=== PATIENT | male | born 1980 | race Caucasian/White ===

== ENCOUNTER 2018-11-18 20:32 | Emergency (ER) | payer OTHER ==
--- NOTE | 2018-11-18 20:50 | EDM.PDOCBH ---
<Garry Priest - Last Filed: 11/18/18 21:39> ED HPI GENERAL MEDICAL PROBLEM - General Chief Complaint: Behavioral/Psych Stated Complaint: SUICIDAL THOUGHTS Time Seen by Provider: 11/18/18 20:47 Source of Information: Reports: Patient History Limitations: Reports: No Limitations - History of Present Illness INITIAL COMMENTS - FREE TEXT/NARRATIVE: HISTORY AND PHYSICAL: History of present illness: Patient is a 38-year-old male here with history of PTSD here with complaint of suicidal thoughts. He states he abruptly stopped his zoloft 3 months ago. He states that since then he has progressively gotten worse. He reports he has been feeling anxious, paranoid, and suicidal. He reports he feels like his neighbors are out to get him. He states today he was thinking about killing himself by cutting his wrists in the bathtub. He called the [facility] in [place] and was told to come to the ED. He presented to the ED on his own with the desire to seek help. He does have history of alcohol and methamphetamine use. He reports he has been sober for the past 2 months. He was hospitalized for acute psychosis last year following methamphetamine use. Patient smokes 1 ppd and requesting nicotine patch. Review of systems: As per history of present illness and below otherwise all systems reviewed and negative. Past medical history: As per history of present illness and as reviewed below otherwise noncontributory. Surgical history: As per history of present illness and as reviewed below otherwise noncontributory. Social history: No reported history of drug or alcohol abuse. Family history: As per history of present illness and as reviewed below otherwise noncontributory. Physical exam: General: Patient sitting comfortably in no acute distress and nontoxic appearing HEENT: Atraumatic, normocephalic, pupils reactive, negative for conjunctival pallor or scleral icterus, mucous membranes moist, throat clear, neck supple, nontender, trachea midline. No meningeal signs. Lungs: Clear to auscultation, breath sounds equal bilaterally, chest nontender. Heart: S1S2, regular, negative for clicks, rubs, or overt murmur. Abdomen: Soft, nondistended, nontender. Negative for masses or hepatosplenomegaly. Negative for costovertebral tenderness. No rigidity, rebound , guarding. Pelvis: Stable nontender. Genitourinary: Deferred. Rectal: Deferred. Extremities: Atraumatic, negative for cords or calf pain. Neurovascular unremarkable. Neuro: Awake, alert, oriented. Cranial nerves II through XII unremarkable. Cerebellum unremarkable. Motor and sensory unremarkable throughout. Exam nonfocal. Notes: Dr. Ortez has accepted patient for transfer. He does mention that patient was requesting opioid medication at his last admission and was someone difficult at that time. He asks if I can mention this to the patient so that patient is aware he will not be receiving opioids. Patient at first does not recall this incident but then states that he was coming off of meth and he remembers that he was very unpleasant at that time. He reports he has no back pain whatsoever and does not want opioid medications. He has been very pleasant and cooperative on my evaluation. Hold was placed on patient. Diagnostics: 3C work up Therapeutics: Nicotine patch Prescriptions: None Impression: Suicidal ideation with a plan Plan: Dr. Ortez has accepted patient for transfer via ground ambulance Definitive disposition and diagnosis as appropriate pending reevaluation and review of above. - Related Data Allergies Allergy/AdvReac Type Severity Reaction Status Date / Time morphine Allergy Itching Verified 11/18/18 20:38 Home Meds: Home Meds . [No Known Home Meds] 11/18/18 [History] Past Medical History Psychiatric History: Reports: Bipolar, PTSD - Infectious Disease History Infectious Disease History: Reports: Chicken Pox Social & Family History - Caffeine Use Caffeine Use: Reports: Coffee, Energy Drinks, Soda, Tea ED ROS GENERAL - Review of Systems Review Of Systems: ROS reveals no pertinent complaints other than HPI. ED EXAM, BEHAVIORAL HEALTH - Physical Exam Exam: See Below (see dictation) COURSE, BEHAVIORAL HEALTH COMP - Course Vital Signs: Last Vital Signs Temp 36.4 C 11/18/18 20:38 Pulse 76 11/18/18 22:38 Resp 14 11/18/18 22:38 BP 140/72 11/18/18 22:38 Pulse Ox 94 L 11/18/18 22:38 Orders, Labs, Meds: Active Orders 24 hr Category Date Time Status EKG Documentation Completion [RC] STAT Care 11/18/18 20:47 Active Laboratory Tests 11/18/18 11/18/18 11/18/18 Range/Units 20:59 20:59 21:34 WBC 9.35 (4.0-11.0) K/uL RBC 4.74 (4.50-5.90) M/uL Hgb 14.3 (13.0-17.0) g/dL Hct 41.8 (38.0-50.0) % MCV 88.2 (80.0-98.0) fL MCH 30.2 (27.0-32.0) pg MCHC 34.2 (31.0-37.0) g/dL RDW Std Deviation 41.2 (28.0-62.0) fl RDW Coeff of Sonido 13 (11.0-15.0) % Plt Count 281 (150-400) K/uL MPV 9.80 (7.40-12.00) fL Neut % (Auto) 61.5 (48.0-80.0) % Lymph % (Auto) 24.8 (16.0-40.0) % [place] % (Auto) 10.7 (0.0-15.0) % Eos % (Auto) 2.5 (0.0-7.0) % Baso % (Auto) 0.5 (0.0-1.5) % Neut # (Auto) 5.8 H (1.4-5.7) K/uL Lymph # (Auto) 2.3 (0.6-2.4) K/uL [place] # (Auto) 1.0 H (0.0-0.8) K/uL Eos # (Auto) 0.2 (0.0-0.7) K/uL Baso # (Auto) 0.1 (0.0-0.1) K/uL Nucleated RBC % 0.0 /100WBC Nucleated RBCs # 0 K/uL Sodium 142 (136-148) mmol/L Potassium 4.1 (3.5-5.1) mmol/L Chloride 104 (98-107) mmol/L Carbon Dioxide 24.2 (21.0-32.0) mmol/L BUN 17 (7.0-18.0) mg/dL Creatinine 1.1 (0.8-1.3) mg/dL Est Cr Clr Drug Dosing 91.95 mL/min Estimated GFR (MDRD) > 60.0 ml/min Glucose 115 H (74-106) mg/dL Calcium 9.3 (8.5-10.1) mg/dL Magnesium 2.1 (1.8-2.4) mg/dL Total Bilirubin 0.3 (0.2-1.0) mg/dL AST 26 (15-37) IU/L ALT 50 (14-63) IU/L Alkaline Phosphatase 88 (46-116) U/L Total Protein 7.4 (6.4-8.2) g/dL Albumin 4.1 (3.4-5.0) g/dL Globulin 3.3 (2.6-4.0) g/dL Albumin/Globulin Ratio 1.2 (0.9-1.6) TSH 3rd Generation 1.18 (0.36-3.74) uIU/mL Urine Color YELLOW Urine Appearance CLEAR Urine pH 6.0 (5.0-8.0) Ur Specific [place] <= 1.005 (1.001-1.035) Urine Protein NEGATIVE (NEGATIVE) mg/dL Urine Glucose (UA) NEGATIVE (NEGATIVE) mg/dL Urine Ketones NEGATIVE (NEGATIVE) mg/dL Urine Occult Blood NEGATIVE (NEGATIVE) Urine Nitrite NEGATIVE (NEGATIVE) Urine Bilirubin NEGATIVE (NEGATIVE) Urine Urobilinogen 0.2 (<2.0) EU/dL Ur Leukocyte Esterase NEGATIVE (NEGATIVE) Urine RBC 0-1 (0-2/HPF) Urine WBC 0-1 (0-5/HPF) Ur Epithelial Cells RARE (NONE-FEW) Urine Bacteria RARE (NEGATIVE) Salicylates 2.1 (0-20) mg/dL Urine Opiates Screen (NEGATIVE) Ur Oxycodone Screen (NEGATIVE) Urine Methadone Screen (NEGATIVE) Acetaminophen < 2.0 ug/mL Ur Barbiturates Screen (NEGATIVE) Ur Phencyclidine Scrn (NEGATIVE) Ur Amphetamine Screen (NEGATIVE) U Methamphetamines Scrn (NEGATIVE) U Benzodiazepines Scrn (NEGATIVE) U Cocaine Metab Screen (NEGATIVE) U Marijuana (THC) Screen (NEGATIVE) Ethyl Alcohol <3 mg/dL 11/18/18 Range/Units 21:34 WBC (4.0-11.0) K/uL RBC (4.50-5.90) M/uL Hgb (13.0-17.0) g/dL Hct (38.0-50.0) % MCV (80.0-98.0) fL MCH (27.0-32.0) pg MCHC (31.0-37.0) g/dL RDW Std Deviation (28.0-62.0) fl RDW Coeff of Sonido (11.0-15.0) % Plt Count (150-400) K/uL MPV (7.40-12.00) fL Neut % (Auto) (48.0-80.0) % Lymph % (Auto) (16.0-40.0) % [place] % (Auto) (0.0-15.0) % Eos % (Auto) (0.0-7.0) % Baso % (Auto) (0.0-1.5) % Neut # (Auto) (1.4-5.7) K/uL Lymph # (Auto) (0.6-2.4) K/uL [place] # (Auto) (0.0-0.8) K/uL Eos # (Auto) (0.0-0.7) K/uL Baso # (Auto) (0.0-0.1) K/uL Nucleated RBC % /100WBC Nucleated RBCs # K/uL Sodium (136-148) mmol/L Potassium (3.5-5.1) mmol/L Chloride (98-107) mmol/L Carbon Dioxide (21.0-32.0) mmol/L BUN (7.0-18.0) mg/dL Creatinine (0.8-1.3) mg/dL Est Cr Clr Drug Dosing mL/min Estimated GFR (MDRD) ml/min Glucose (74-106) mg/dL Calcium (8.5-10.1) mg/dL Magnesium (1.8-2.4) mg/dL Total Bilirubin (0.2-1.0) mg/dL AST (15-37) IU/L ALT (14-63) IU/L Alkaline Phosphatase (46-116) U/L Total Protein (6.4-8.2) g/dL Albumin (3.4-5.0) g/dL Globulin (2.6-4.0) g/dL Albumin/Globulin Ratio (0.9-1.6) TSH 3rd Generation (0.36-3.74) uIU/mL Urine Color Urine Appearance Urine pH (5.0-8.0) Ur Specific [place] (1.001-1.035) Urine Protein (NEGATIVE) mg/dL Urine Glucose (UA) (NEGATIVE) mg/dL Urine Ketones (NEGATIVE) mg/dL Urine Occult Blood (NEGATIVE) Urine Nitrite (NEGATIVE) Urine Bilirubin (NEGATIVE) Urine Urobilinogen (<2.0) EU/dL Ur Leukocyte Esterase (NEGATIVE) Urine RBC (0-2/HPF) Urine WBC (0-5/HPF) Ur Epithelial Cells (NONE-FEW) Urine Bacteria (NEGATIVE) Salicylates (0-20) mg/dL Urine Opiates Screen NEGATIVE (NEGATIVE) Ur Oxycodone Screen NEGATIVE (NEGATIVE) Urine Methadone Screen NEGATIVE (NEGATIVE) Acetaminophen ug/mL Ur Barbiturates Screen NEGATIVE (NEGATIVE) Ur Phencyclidine Scrn NEGATIVE (NEGATIVE) Ur Amphetamine Screen NEGATIVE (NEGATIVE) U Methamphetamines Scrn NEGATIVE (NEGATIVE) U Benzodiazepines Scrn NEGATIVE (NEGATIVE) U Cocaine Metab Screen NEGATIVE (NEGATIVE) U Marijuana (THC) Screen NEGATIVE (NEGATIVE) Ethyl Alcohol mg/dL Medications Discontinued Medications Generic Name Dose Route Start Last Admin Trade Name Freq PRN Reason Stop Dose Admin Nicotine 21 mg 11/18/18 21:38 11/18/18 22:04 Habitrol TRDERM 11/18/18 21:39 21 mg ONETIME ONE Administration Departure - Departure Time of Disposition: 21:44 Disposition: DC/Tfer to Psych Hosp/Unit 65 Condition: Good Clinical Impression: Suicidal intent - Discharge Information Instructions: Suicidal Feelings: How to Help Yourself Referrals: PCP,None [Primary Care Provider] - Forms: ED Department Discharge <Era Maldonado - Last Filed: 11/18/18 23:26> ED HPI GENERAL MEDICAL PROBLEM - History of Present Illness INITIAL COMMENTS - FREE TEXT/NARRATIVE: Please add to the chart that Dr. Ortez is at [facility] in [place]
[2018-11-18] MEDS: Nicotine 21 MG/24 Hr Patch TRDERM ONE (22:04)
[2018-11-18 22:25] LABS: CHLORIDE,CL 104 mmol/L (98-107); SODIUM,NA 142 mmol/L (136-148)
[2018-11-18 22:31] LABS: ACETAMINOPHEN < 2.0 ug/mL
== END 2018-11-18 22:42 ==
LOC: MW.ED 20:32
DX: R45.851 Suicidal ideations (principal)
CPT/HCPCS: 36415; 80053; 80305; 81001; 83735; 84443; 85025; 93005; 99285; A9270; G0480

== ENCOUNTER 2019-06-07 11:28 | Emergency (ER) | payer SELFPAY ==
--- NOTE | 2019-06-07 11:41 | EDM.PDOC ---
ED HPI GENERAL MEDICAL PROBLEM - General Chief Complaint: General Stated Complaint: MED CLEAR Time Seen by Provider: 06/07/19 11:36 Source of Information: Reports: Patient History Limitations: Reports: No Limitations - History of Present Illness INITIAL COMMENTS - FREE TEXT/NARRATIVE: HISTORY AND PHYSICAL: History of present illness: Patient is a 39-year-old male who presents to the emergency room today with complaints of suicidal ideation. He is accompanied by law enforcement. Patient reports over the past several days he has had thoughts of harming himself. This morning he woke up and stated he had thoughts of cutting his wrists and "bleeding out into the pool" or "shooting myself in the head with a gun". [facility] come to the emergency room. Law enforcement did go do a welfare check on this patient who had brought him into the emergency room for evaluation. Patient states he does have a history of suicidal ideation and has been placed on emergency hold's in the past. Patient is requesting to be placed on a hold as he states if he goes home he does plan to carry out his intentions. He does have history of alcohol and drug abuse, states he has been clean for the last 8 months. Patient denies any fever, chills, headache, change in vision, syncope or near syncope. Denies any chest pain, back pain, shortness of breath or cough. Denies any abdominal pain, nausea, vomiting, diarrhea, constipation or dysuria. Has not noted any blood in urine or stool. Patient has been eating and drinking appropriately. Review of systems: As per history of present illness and below otherwise all systems reviewed and negative. Past medical history: As per history of present illness and as reviewed below otherwise noncontributory. Surgical history: As per history of present illness and as reviewed below otherwise noncontributory. Social history: See social history for further information Family history: As per history of present illness and as reviewed below otherwise noncontributory. Physical exam: General: Well-developed and well-nourished 39-year-old male. Alert and oriented. Nontoxic appearing and in no acute distress. HEENT: Atraumatic, normocephalic, pupils equal and reactive bilaterally, negative for conjunctival pallor or scleral icterus, mucous membranes moist, trachea midline. No drooling or trismus noted. No meningeal signs. No hot potato voice noted. Lungs: Clear to auscultation, breath sounds equal bilaterally, chest nontender. Heart: S1S2, regular rate and rhythm without overt murmur Abdomen: Soft, nondistended, nontender. Negative for masses or hepatosplenomegaly. Negative for costovertebral tenderness. Pelvis: Stable nontender. Skin: Intact, warm, dry. No lesions or rashes noted. Extremities: Atraumatic, moves all extremities per self without difficulty or deficits, negative for cords or calf pain. Neurovascular unremarkable. Neuro: Awake, alert, oriented. Cranial nerves II through XII unremarkable. Cerebellum unremarkable. Motor and sensory unremarkable throughout. Exam nonfocal. Notes: We do not have any beds available at [facility] in [place], [facility], or [place]. [facility] in [place] was consulted as the patient is a . I spoke with Dr. Ellsworth, who is agreeable to accepting this patient. Patient will go by ambulance. Emergency hold was placed. Diagnostics: CBC, CMP, UA, DRGU, EKG, Acetaminophen, Salisalate, TSH Therapeutics: None Impression: Suicidal ideation with plan Plan: Transfer to [facility] Definitive disposition and diagnosis as appropriate pending reevaluation and review of above. - Related Data Allergies Allergy/AdvReac Type Severity Reaction Status Date / Time morphine Allergy Itching Verified 11/18/18 20:38 Home Meds: Home Meds . [No Known Home Meds] 11/18/18 [History] Past Medical History HEENT History: Reports: None Cardiovascular History: Reports: None Respiratory History: Reports: None Gastrointestinal History: Reports: None Genitourinary History: Reports: None Musculoskeletal History: Reports: None Neurological History: Reports: None Psychiatric History: Reports: Addiction, Anxiety, Bipolar, PTSD, Suicide Attempt Endocrine/Metabolic History: Reports: None Hematologic History: Reports: None Oncologic (Cancer) History: Reports: None Dermatologic History: Reports: None - Infectious Disease History Infectious Disease History: Reports: Chicken Pox Social & Family History - Family History Family Medical History: Noncontributory - Caffeine Use Caffeine Use: Reports: Coffee, Energy Drinks, Soda, Tea ED ROS GENERAL - Review of Systems Review Of Systems: ROS reveals no pertinent complaints other than HPI. ED EXAM, GENERAL - Physical Exam Exam: See Below (See dictation) Course - Vital Signs Last Recorded V/S: Last Vital Signs Temp 98 F 06/07/19 11:44 Pulse 78 06/07/19 11:44 Resp 16 06/07/19 11:44 BP 142/95 H 06/07/19 11:44 Pulse Ox - Orders/Labs/Meds Orders: Active Orders 24 hr Category Date Time Status EKG Documentation Completion [RC] STAT Care 06/07/19 12:53 Active ACETAMINOPHEN [CHEM] Stat Lab 06/07/19 12:20 Received COMPREHENSIVE METABOLIC PN,CMP [CHEM] Stat Lab 06/07/19 12:20 Received ETOH [ETHANOL BLOOD MEDICAL] [CHEM] Stat Lab 06/07/19 12:20 Received SALICYLATE [CHEM] Stat Lab 06/07/19 12:20 Received TSH [CHEM] Stat Lab 06/07/19 12:20 Received Labs: Laboratory Tests 06/07/19 06/07/19 06/07/19 Range/Units 11:49 11:53 12:20 WBC 7.44 (4.0-11.0) K/uL RBC 5.17 (4.50-5.90) M/uL Hgb 15.4 (13.0-17.0) g/dL Hct 45.8 (38.0-50.0) % MCV 88.6 (80.0-98.0) fL MCH 29.8 (27.0-32.0) pg MCHC 33.6 (31.0-37.0) g/dL RDW Std Deviation 43.3 (28.0-62.0) fl RDW Coeff of Sonido 13 (11.0-15.0) % Plt Count 300 (150-400) K/uL MPV 10.10 (7.40-12.00) fL Neut % (Auto) 61.8 (48.0-80.0) % Lymph % (Auto) 27.3 (16.0-40.0) % [place] % (Auto) 8.2 (0.0-15.0) % Eos % (Auto) 2.2 (0.0-7.0) % Baso % (Auto) 0.5 (0.0-1.5) % Neut # (Auto) 4.6 (1.4-5.7) K/uL Lymph # (Auto) 2.0 (0.6-2.4) K/uL [place] # (Auto) 0.6 (0.0-0.8) K/uL Eos # (Auto) 0.2 (0.0-0.7) K/uL Baso # (Auto) 0.0 (0.0-0.1) K/uL Nucleated RBC % 0.0 /100WBC Nucleated RBCs # 0 K/uL Urine Color YELLOW Urine Appearance CLEAR Urine pH 6.0 (5.0-8.0) Ur Specific [place] 1.015 (1.001-1.035) Urine Protein NEGATIVE (NEGATIVE) mg/dL Urine Glucose (UA) NEGATIVE (NEGATIVE) mg/dL Urine Ketones NEGATIVE (NEGATIVE) mg/dL Urine Occult Blood NEGATIVE (NEGATIVE) Urine Nitrite NEGATIVE (NEGATIVE) Urine Bilirubin NEGATIVE (NEGATIVE) Urine Urobilinogen 0.2 (<2.0) EU/dL Ur Leukocyte Esterase NEGATIVE (NEGATIVE) Urine Opiates Screen NEGATIVE (NEGATIVE) Ur Oxycodone Screen NEGATIVE (NEGATIVE) Urine Methadone Screen NEGATIVE (NEGATIVE) Ur Barbiturates Screen NEGATIVE (NEGATIVE) Ur Phencyclidine Scrn NEGATIVE (NEGATIVE) Ur Amphetamine Screen NEGATIVE (NEGATIVE) U Methamphetamines Scrn NEGATIVE (NEGATIVE) U Benzodiazepines Scrn NEGATIVE (NEGATIVE) U Cocaine Metab Screen NEGATIVE (NEGATIVE) U Marijuana (THC) Screen NEGATIVE (NEGATIVE) Departure - Departure Time of Disposition: 13:02 Disposition: DC/Tfer to Psych Hosp/Unit 65 Clinical Impression: Suicidal ideation - Discharge Information Referrals: PCP,Unknown [Primary Care Provider] - Forms: ED Department Discharge - My Orders Last 24 Hours: My Active Orders 06/07/19 12:20 ACETAMINOPHEN [CHEM] Stat COMPREHENSIVE METABOLIC PN,CMP [CHEM] Stat ETOH [ETHANOL BLOOD MEDICAL] [CHEM] Stat SALICYLATE [CHEM] Stat TSH [CHEM] Stat 06/07/19 12:53 EKG Documentation Completion [RC] STAT - Assessment/Plan Last 24 Hours: My Active Orders 06/07/19 12:20 ACETAMINOPHEN [CHEM] Stat COMPREHENSIVE METABOLIC PN,CMP [CHEM] Stat ETOH [ETHANOL BLOOD MEDICAL] [CHEM] Stat SALICYLATE [CHEM] Stat TSH [CHEM] Stat 06/07/19 12:53 EKG Documentation Completion [RC] STAT
[2019-06-07 13:09] LABS: ACETAMINOPHEN <2.0 ug/mL; BLOOD UREA NITROGEN,BUN 7 mg/dL (7.0-18.0); CARBON DIOXIDE,CO2 27.3 mmol/L (21.0-32.0); CHLORIDE,CL 101 mmol/L (98-107); GLUCOSE RANDOM 101 mg/dL (74-106); POTASSIUM,K 3.8 mmol/L (3.5-5.1); SODIUM,NA 139 mmol/L (136-148)
[2019-06-07] MEDS ORDERED: LORazepam 1 MG Tab PO ONE (13:40)
[2019-06-07] MEDS ORDERED: Nicotine 14 MG/24 Hr Patch TRDERM ONE (13:40)
== END 2019-06-07 14:20 ==
LOC: MW.ED 11:28
DX: R45.851 Suicidal ideations (principal); Z88.5 Allergy status to narcotic agent
CPT/HCPCS: 36415; 80053; 80305; 80320; 80329; 81003; 84443; 85025; 93005; 99285; A9270; 99283; G0480

== ENCOUNTER 2019-07-26 20:16 | Emergency (ER) | payer SELFPAY ==
--- NOTE | 2019-07-26 20:35 | EDM.PDOC ---
ED HPI GENERAL MEDICAL PROBLEM - General Chief Complaint: Drug or Alcohol Abuse Stated Complaint: PTSD Time Seen by Provider: 07/26/19 20:27 - History of Present Illness INITIAL COMMENTS - FREE TEXT/NARRATIVE: HISTORY AND PHYSICAL: History of present illness: The patient is a 39-year-old male with a knwn history of methamphetamine use and addiction who came here via EMS because he would like help. He says he used a large amount today as well as yesterday and his habitual user and has done rehabilitation before. He says he like to go to [place] for treatment and has no medical complaints currently. He denies any chest pain abdominal pain nausea vomiting or flulike symptoms. Review of systems: As per history of present illness and below otherwise all systems reviewed and negative. Past medical history: As per history of present illness and as reviewed below otherwise noncontributory. Surgical history: As per history of present illness and as reviewed below otherwise noncontributory. Social history: No reported history of drug or alcohol abuse. Family history: As per history of present illness and as reviewed below otherwise noncontributory. Physical exam: general: Well-developed well-nourished man who is nontoxic and vital signs are noted by me. He is not very talkative a forthcoming with me and seems somewhat annoyed in my conversation with him HEENT: Atraumatic, normocephalic, pupils reactive, negative for conjunctival pallor or scleral icterus, mucous membranes tachycardia throat clear, neck supple, nontender, trachea midline. Lungs: Clear to auscultation, breath sounds equal bilaterally, chest nontender. Heart: S1S2, regular rhythm and mildlytachycardic rate of my evaluation, no overt murmurs Abdomen: Soft, nondistended, nontender. NABS Pelvis: deferred Genitourinary: Deferred. Rectal: Deferred. Extremities: Atraumatic, negative for cords or calf pain. Neurovascular unremarkable. Neuro: Awake, alert, oriented. Cranial nerves II through XII unremarkable. Cerebellum unremarkable. Motor and sensory unremarkable throughout. Exam nonfocal. Diagnostics: [] Therapeutics: [] After triage the patient was being somewhat verbally engaging with staff and the police were called and they were at bedside during my evaluation. I did express to the patient that we had outpatient resources which only give him but we do not have any inpatient resources and that if he would like to pursue those he can do that independently. He did not seem very happy with our conversation but currently he has no medical issues other than the side effects of methamphetamine use and I've advised him to hydrate and to get follow-up Impression: methamphetamine use/ abuse, medical screening exam Definitive disposition and diagnosis as appropriate pending reevaluation and review of above. no pain Pain Score (Numeric/FACES): 0 - Related Data Allergies Allergy/AdvReac Type Severity Reaction Status Date / Time morphine Allergy Itching Verified 07/26/19 20:20 Home Meds: Home Meds . [No Known Home Meds] 11/18/18 [History] Past Medical History HEENT History: Reports: None Cardiovascular History: Reports: None Respiratory History: Reports: None Gastrointestinal History: Reports: None Genitourinary History: Reports: None Musculoskeletal History: Reports: None Neurological History: Reports: None Psychiatric History: Reports: Addiction, Anxiety, Bipolar, PTSD, Suicide Attempt Endocrine/Metabolic History: Reports: None Hematologic History: Reports: None Oncologic (Cancer) History: Reports: None Dermatologic History: Reports: None - Infectious Disease History Infectious Disease History: Reports: Chicken Pox Social & Family History - Family History Family Medical History: Noncontributory - Tobacco Use Smoking Status *Q: Current Every Day Smoker Years of Tobacco use: 20 Packs/Tins Daily: 1 - Caffeine Use Caffeine Use: Reports: Coffee, Energy Drinks, Soda, Tea - Recreational Drug Use Recreational Drug Use: Yes Recreational Drug Type: Reports: Marijuana/Hashish, Methamphetamine ED ROS GENERAL - Review of Systems Review Of Systems: Comprehensive ROS is negative, except as noted in HPI. ED EXAM, GENERAL - Physical Exam Exam: See Below (see dictation) Course - Vital Signs Last Recorded V/S: Last Vital Signs Temp 36.4 C 07/26/19 20:20 Pulse 122 H 07/26/19 20:20 Resp 20 07/26/19 20:20 BP 164/72 H 07/26/19 20:20 Pulse Ox 98 07/26/19 20:20 Departure - Departure Time of Disposition: 20:34 Disposition: Home, Self-Care 01 Condition: Good Clinical Impression: Methamphetamine abuse, Encounter for medical screening examination - Discharge Information Referrals: PCP,Unobtain [Primary Care Provider] - Additional Instructions: The following information is given to patients seen in the emergency department who are being discharged to home. This information is to outline your options for follow-up care. We provide all patients seen in our emergency department with a follow-up referral. The need for follow-up, as well as the timing and circumstances, are variable depending upon the specifics of your emergency department visit. If you don't have a primary care physician on staff, we will provide you with a referral. We always advise you to contact your personal physician following an emergency department visit to inform them of the circumstance of the visit and for follow-up with them and/or the need for any referrals to a consulting specialist. The emergency department will also refer you to a specialist when appropriate. This referral assures that you have the opportunity for followup care with a specialist. All of these measure are taken in an effort to provide you with optimal care, which includes your followup. Under all circumstances we always encourage you to contact your private physician who remains a resource for coordinating your care. When calling for followup care, please make the office aware that this follow-up is from your recent emergency room visit. If for any reason you are refused follow-up, please contact the [facility] emergency department at and ask to speak to the emergency department charge nurse. [facility] Primary care- Internal Medicine and Family [address] [address] Please use outpatient resources or pursue inpatient as we discussed per your desire for help. Return to ER as needed as discussed and follow-up with one of our providers in the clinic as you choose.push hydration
== END 2019-07-26 20:56 | disposition home or self-care (01) ==
LOC: MW.ED 20:16
DX: F15.10 Other stimulant abuse, uncomplicated (principal); Z13.9 Encounter for screening, unspecified; F17.210 Nicotine dependence, cigarettes, uncomplicated; Z88.5 Allergy status to narcotic agent
CPT/HCPCS: 99284

== ENCOUNTER 2020-01-14 09:45 | Emergency (ER) | payer SELFPAY ==
--- NOTE | 2020-01-14 10:04 | EDM.PDOC ---
ED HPI GENERAL MEDICAL PROBLEM - General Chief Complaint: Drug or Alcohol Abuse Stated Complaint: OD BROUGHT IN VIA AMBULANCE Time Seen by Provider: 01/14/20 09:50 - History of Present Illness INITIAL COMMENTS - FREE TEXT/NARRATIVE: History of present illness: [Patient presents via EMS after taking 10 150 mg trazodone tablets after speaking to his psychologist and getting frustrated. Just prior to arrival the patient would not elaborate on what exactly it was that caused him to do this he has prior psych history prior drug abuse history and a prior history of suicidal ideation and attempts. He is somewhat sedated but arousable he has no other complaints nothing makes it better or worse] Review of systems: As per history of present illness and below otherwise all systems reviewed and negative. Past medical history: As per history of present illness and as reviewed below otherwise noncontributory. Surgical history: As per history of present illness and as reviewed below otherwise noncontributory. Social history: No reported history of drug or alcohol abuse. Family history: As per history of present illness and as reviewed below otherwise noncontributory. Physical exam: HEENT: Atraumatic, normocephalic, pupils reactive, negative for conjunctival pallor or scleral icterus, mucous membranes moist, throat clear, neck supple, nontender, trachea midline. Lungs: Clear to auscultation, breath sounds equal bilaterally, chest nontender. Heart: S1S2, regular, negative for clicks, rubs, or JVD. Abdomen: Soft, nondistended, nontender. Negative for masses or hepatosplenomegaly. Negative for costovertebral tenderness. Pelvis: Stable nontender. Genitourinary: Deferred. Rectal: Deferred. Extremities: Atraumatic, negative for cords or calf pain. Neurovascular unremarkable. Neuro: Awake, alert, oriented. Cranial nerves II through XII unremarkable. Cerebellum unremarkable. Motor and sensory unremarkable throughout. Exam nonfocal. Psych: Patient denies current suicidality but did in fact take a dangerous overdose just prior to arrival Diagnostics: [] Therapeutics: [] Impression: Suicide attempt drug overdose [] Plan: An EKG will be obtained screening labs will be obtained patient will be observed until medically clear and then will be transferred to an appropriate psychiatric facility for care [] Definitive disposition and diagnosis as appropriate pending reevaluation and review of above. - Related Data Allergies Allergy/AdvReac Type Severity Reaction Status Date / Time morphine Allergy Itching Verified 01/14/20 09:54 Home Meds: Home Meds traZODone 150 mg PO BEDTIME 01/14/20 [History] Past Medical History HEENT History: Reports: None Cardiovascular History: Reports: None Respiratory History: Reports: None Gastrointestinal History: Reports: None Genitourinary History: Reports: None Musculoskeletal History: Reports: None Neurological History: Reports: None Psychiatric History: Reports: Addiction, Anxiety, Bipolar, PTSD, Suicide Attempt Endocrine/Metabolic History: Reports: None Hematologic History: Reports: None Immunologic History: Reports: None Oncologic (Cancer) History: Reports: None Dermatologic History: Reports: None - Infectious Disease History Infectious Disease History: Reports: Chicken Pox - Past Surgical History Head Surgeries/Procedures: Reports: None Social & Family History - Family History Family Medical History: Noncontributory - Tobacco Use Smoking Status *Q: Never Smoker - Caffeine Use Caffeine Use: Reports: Coffee, Energy Drinks, Soda, Tea - Recreational Drug Use Recreational Drug Use: No ED ROS GENERAL - Review of Systems Review Of Systems: See Below ED EXAM, GENERAL - Physical Exam Exam: See Below EKG INTERPRETATION EKG Interpretation Comments: EKG is sinus bradycardia rate of 45 bpm with a nonspecific intraventricular conduction delay there is a terminal R in AVR Course - Vital Signs Text/Narrative:: EKG changes to include widened QRS and bradycardia he will be started on amp of bicarb and a bicarb drip. Monitor closely for deterioration. Patient is noted to be hypokalemic potassium will be repleted. Discussed case with Dr. Wong resident on with the hospitalist service for Dr. Linn will admit the patient to ICU. Repeat EKG is normal sinus rhythm rate of 59 bpm with a widened QRS that is improved from prior read and interpreted by me Critical care 40 minutes for suicide attempt drug overdose unstable vital signs and abnormal EKG. This included interpretation of multiple EKGs initiation of sodium bicarb drip and bicarb push repletion of potassium discussion with consultants does not include separately billable procedures Discussed with DR Linn who will not accept the patient because suicidal patients are difficult to disposition over the weekend. I reiterated that the patient is not medically stable for placement to a psych facility. She states that I need to find another hospital with in patient psychiatry. I discussed the case with advertising dispatch clerks supervisor who check with administration and they state that the hospitalist is unable to care for this patient. And I must transfer them. I discussed the case with Dr. Galindo at [facility] in [place] emergency department and he will accept the patient. Last Recorded V/S: Last Vital Signs Temp 35.9 C L 01/14/20 09:50 Pulse 71 01/14/20 12:03 Resp 16 01/14/20 12:03 BP 112/62 01/14/20 12:03 Pulse Ox 96 01/14/20 12:03 - Orders/Labs/Meds Orders: Active Orders 24 hr Category Date Time Status EKG 12 Lead [EKG Documentation Completion] [RC] STAT Care 01/14/20 11:40 Active EKG Documentation Completion [RC] STAT Care 01/14/20 09:57 Active Potassium Chloride Riders [KCL 40 MEQ in Water 100 ML] Med 01/14/20 11:18 Active 40 meq Premix Bag 1 bag IV ONETIME Sodium Bicarbonate [Sodium Bicarbonate 8.4%] 150 meq Med 01/14/20 10:19 Active Dextrose 5% in Water 1,000 ml IV ONETIME Sodium Chloride 0.9% [Normal Saline] 1,000 ml Med 01/14/20 12:00 Active IV STAT Medication Orders Sodium Bicarbonate 150 meq/ (Dextrose/Water) 1,150 mls @ 150 mls/hr IV ONETIME ONE Stop: 01/14/20 17:44 Last Admin: 01/14/20 10:36 Dose: 150 mls/hr Potassium Chloride 40 meq/ (Premix) 100 mls @ 25 mls/hr IV ONETIME ONE Stop: 01/14/20 15:17 Last Infusion: 01/14/20 12:07 Dose: 20 mls/hr Admin: 01/14/20 12:02 Dose: 25 mls/hr Sodium Chloride (Normal Saline) 1,000 mls @ 250 mls/hr IV STAT EVY Last Admin: 01/14/20 12:01 Dose: 250 mls/hr Labs: Laboratory Tests 01/14/20 01/14/20 01/14/20 Range/Units 09:55 09:55 11:18 WBC 13.50 H (4.0-11.0) K/uL RBC 4.62 (4.50-5.90) M/uL Hgb 13.7 (13.0-17.0) g/dL Hct 40.7 (38.0-50.0) % MCV 88.1 (80.0-98.0) fL MCH 29.7 (27.0-32.0) pg MCHC 33.7 (31.0-37.0) g/dL RDW Std Deviation 43.0 (28.0-62.0) fl RDW Coeff of Sonido 13 (11.0-15.0) % Plt Count 273 (150-400) K/uL MPV 10.00 (7.40-12.00) fL Neut % (Auto) 57.0 (48.0-80.0) % Lymph % (Auto) 32.1 (16.0-40.0) % [place] % (Auto) 8.8 (0.0-15.0) % Eos % (Auto) 1.7 (0.0-7.0) % Baso % (Auto) 0.4 (0.0-1.5) % Neut # (Auto) 7.7 H (1.4-5.7) K/uL Lymph # (Auto) 4.3 H (0.6-2.4) K/uL [place] # (Auto) 1.2 H (0.0-0.8) K/uL Eos # (Auto) 0.2 (0.0-0.7) K/uL Baso # (Auto) 0.1 (0.0-0.1) K/uL Nucleated RBC % 0.0 /100WBC Nucleated RBCs # 0 K/uL Sodium 137 (136-148) mmol/L Potassium 2.7 L (3.5-5.1) mmol/L Chloride 100 (98-107) mmol/L Carbon Dioxide 21.6 (21.0-32.0) mmol/L BUN 9 (7.0-18.0) mg/dL Creatinine 1.4 H (0.8-1.3) mg/dL Est Cr Clr Drug Dosing 71.54 mL/min Estimated GFR (MDRD) 56.7 ml/min Glucose 200 H (74-106) mg/dL Calcium 8.6 (8.5-10.1) mg/dL Magnesium 1.7 L (1.8-2.4) mg/dL Total Bilirubin 0.3 (0.2-1.0) mg/dL AST 33 (15-37) IU/L ALT 31 (14-63) IU/L Alkaline Phosphatase 84 (46-116) U/L Total Protein 7.0 (6.4-8.2) g/dL Albumin 4.1 (3.4-5.0) g/dL Globulin 2.9 (2.6-4.0) g/dL Albumin/Globulin Ratio 1.4 (0.9-1.6) TSH 3rd Generation 1.92 (0.36-3.74) uIU/mL Urine Color YELLOW Urine Appearance CLEAR Urine pH 5.5 (5.0-8.0) Ur Specific [place] 1.025 (1.001-1.035) Urine Protein NEGATIVE (NEGATIVE) mg/dL Urine Glucose (UA) NEGATIVE (NEGATIVE) mg/dL Urine Ketones NEGATIVE (NEGATIVE) mg/dL Urine Occult Blood NEGATIVE (NEGATIVE) Urine Nitrite NEGATIVE (NEGATIVE) Urine Bilirubin NEGATIVE (NEGATIVE) Urine Urobilinogen 0.2 (<2.0) EU/dL Ur Leukocyte Esterase NEGATIVE (NEGATIVE) Urine RBC 0-1 (0-2/HPF) Urine WBC 0-1 (0-5/HPF) Ur Epithelial Cells RARE (NONE-FEW) Urine Bacteria RARE (NEGATIVE) Salicylates 3.8 (0-20) mg/dL Urine Opiates Screen (NEGATIVE) Ur Oxycodone Screen (NEGATIVE) Urine Methadone Screen (NEGATIVE) Acetaminophen <2.0 ug/mL Ur Barbiturates Screen (NEGATIVE) Ur Phencyclidine Scrn (NEGATIVE) Ur Amphetamine Screen (NEGATIVE) U Methamphetamines Scrn (NEGATIVE) U Benzodiazepines Scrn (NEGATIVE) U Cocaine Metab Screen (NEGATIVE) U Marijuana (THC) Screen (NEGATIVE) Ethyl Alcohol < 3.0 mg/dL 01/14/20 Range/Units 11:18 WBC (4.0-11.0) K/uL RBC (4.50-5.90) M/uL Hgb (13.0-17.0) g/dL Hct (38.0-50.0) % MCV (80.0-98.0) fL MCH (27.0-32.0) pg MCHC (31.0-37.0) g/dL RDW Std Deviation (28.0-62.0) fl RDW Coeff of Sonido (11.0-15.0) % Plt Count (150-400) K/uL MPV (7.40-12.00) fL Neut % (Auto) (48.0-80.0) % Lymph % (Auto) (16.0-40.0) % [place] % (Auto) (0.0-15.0) % Eos % (Auto) (0.0-7.0) % Baso % (Auto) (0.0-1.5) % Neut # (Auto) (1.4-5.7) K/uL Lymph # (Auto) (0.6-2.4) K/uL [place] # (Auto) (0.0-0.8) K/uL Eos # (Auto) (0.0-0.7) K/uL Baso # (Auto) (0.0-0.1) K/uL Nucleated RBC % /100WBC Nucleated RBCs # K/uL Sodium (136-148) mmol/L Potassium (3.5-5.1) mmol/L Chloride (98-107) mmol/L Carbon Dioxide (21.0-32.0) mmol/L BUN (7.0-18.0) mg/dL Creatinine (0.8-1.3) mg/dL Est Cr Clr Drug Dosing mL/min Estimated GFR (MDRD) ml/min Glucose (74-106) mg/dL Calcium (8.5-10.1) mg/dL Magnesium (1.8-2.4) mg/dL Total Bilirubin (0.2-1.0) mg/dL AST (15-37) IU/L ALT (14-63) IU/L Alkaline Phosphatase (46-116) U/L Total Protein (6.4-8.2) g/dL Albumin (3.4-5.0) g/dL Globulin (2.6-4.0) g/dL Albumin/Globulin Ratio (0.9-1.6) TSH 3rd Generation (0.36-3.74) uIU/mL Urine Color Urine Appearance Urine pH (5.0-8.0) Ur Specific [place] (1.001-1.035) Urine Protein (NEGATIVE) mg/dL Urine Glucose (UA) (NEGATIVE) mg/dL Urine Ketones (NEGATIVE) mg/dL Urine Occult Blood (NEGATIVE) Urine Nitrite (NEGATIVE) Urine Bilirubin (NEGATIVE) Urine Urobilinogen (<2.0) EU/dL Ur Leukocyte Esterase (NEGATIVE) Urine RBC (0-2/HPF) Urine WBC (0-5/HPF) Ur Epithelial Cells (NONE-FEW) Urine Bacteria (NEGATIVE) Salicylates (0-20) mg/dL Urine Opiates Screen NEGATIVE (NEGATIVE) Ur Oxycodone Screen NEGATIVE (NEGATIVE) Urine Methadone Screen NEGATIVE (NEGATIVE) Acetaminophen ug/mL Ur Barbiturates Screen NEGATIVE (NEGATIVE) Ur Phencyclidine Scrn NEGATIVE (NEGATIVE) Ur Amphetamine Screen NEGATIVE (NEGATIVE) U Methamphetamines Scrn NEGATIVE (NEGATIVE) U Benzodiazepines Scrn NEGATIVE (NEGATIVE) U Cocaine Metab Screen NEGATIVE (NEGATIVE) U Marijuana (THC) Screen NEGATIVE (NEGATIVE) Ethyl Alcohol mg/dL Meds: Medications Generic Name Dose Route Start Last Admin Trade Name Freq PRN Reason Stop Dose Admin Sodium Bicarbonate 150 meq/ 1,150 mls @ 150 mls/hr 01/14/20 10:19 01/14/20 10 :36 Dextrose/Water IV 01/14/20 17:44 150 mls/hr ONETIME ONE Administration Potassium Chloride 40 meq/ 100 mls @ 25 mls/hr 01/14/20 11:18 01/14/20 12:07 Premix IV 01/14/20 15:17 20 mls/hr ONETIME ONE Infusion Sodium Chloride 1,000 mls @ 250 mls/hr 01/14/20 12:00 01/14/20 12:01 Normal Saline IV 250 mls/hr STAT EVY Administration Discontinued Medications Generic Name Dose Route Start Last Admin Trade Name Freq PRN Reason Stop Dose Admin Sodium Chloride 1,000 mls @ 999 mls/hr 01/14/20 10:16 01/14/20 10:20 Normal Saline IV 01/14/20 11:16 999 mls/hr .Bolus ONE Administration Potassium Chloride 40 meq 01/14/20 11:18 01/14/20 12:02 Klor-Con M20 PO 01/14/20 11:19 40 meq ONETIME ONE Administration Sodium Bicarbonate 50 meq 01/14/20 10:05 01/14/20 10:32 Sodium Bicarbonate 8.4% IVPUSH 01/14/20 10:06 Not Given ONETIME ONE Sodium Bicarbonate 44.6 meq 01/14/20 10:31 01/14/20 10:08 Sodium Bicarbonate 4.2% IVPUSH 01/14/20 10:32 44.6 meq ONETIME STA Administration Departure - Departure Time of Disposition: 12:21 Disposition: DC/Tfer to Acute Hospital 02 Condition: Fair Clinical Impression: Overdose, Suicide attempt - Discharge Information *PRESCRIPTION DRUG MONITORING PROGRAM REVIEWED*: Not Applicable *COPY OF PRESCRIPTION DRUG MONITORING REPORT IN PATIENT BARBARA: Not Applicable Sepsis Event Note - Evaluation Sepsis Screening Result: No Definite Risk - Focused Exam Vital Signs: Vital Signs Temp Pulse Resp BP Pulse Ox 01/14/20 12:03 71 16 112/62 96 01/14/20 11:36 55 L 122/73 93 L 01/14/20 11:02 60 16 118/66 100 01/14/20 10:32 54 L 13 120/70 94 L 01/14/20 10:17 52 L 14 115/63 91 L 01/14/20 10:02 45 L 97/59 L 94 L 01/14/20 09:50 35.9 C L 55 L 14 124/64 94 L Date Exam was Performed: 01/14/20 Time Exam was Performed: 12:56 - My Orders Last 24 Hours: My Active Orders 01/14/20 09:57 EKG Documentation Completion [RC] STAT 01/14/20 10:19 Sodium Bicarbonate [Sodium Bicarbonate 8.4%] 150 meq Dextrose 5% in Water 1, 000 ml IV ONETIME 01/14/20 11:18 Potassium Chloride Riders [KCL 40 MEQ in Water 100 ML] 40 meq Premix Bag 1 bag IV ONETIME 01/14/20 11:40 EKG 12 Lead [EKG Documentation Completion] [RC] STAT 01/14/20 12:00 Sodium Chloride 0.9% [Normal Saline] 1,000 ml IV STAT - Assessment/Plan Last 24 Hours: My Active Orders 01/14/20 09:57 EKG Documentation Completion [RC] STAT 01/14/20 10:19 Sodium Bicarbonate [Sodium Bicarbonate 8.4%] 150 meq Dextrose 5% in Water 1, 000 ml IV ONETIME 01/14/20 11:18 Potassium Chloride Riders [KCL 40 MEQ in Water 100 ML] 40 meq Premix Bag 1 bag IV ONETIME 01/14/20 11:40 EKG 12 Lead [EKG Documentation Completion] [RC] STAT 01/14/20 12:00 Sodium Chloride 0.9% [Normal Saline] 1,000 ml IV STAT
[2020-01-14] MEDS ORDERED: Sodium Bicarbonate 8.4% 50 MEQ/50 ML Syringe IVPUSH ONE (10:05)
[2020-01-14] MEDS ORDERED: Sodium Bicarbonate 150 MEQ in Dextrose 5% in Water 1,000 ML IV ONE ×4 (10:05→10:19)
[2020-01-14] MEDS ORDERED: Sodium Chloride 0.9% 1,000 ML IV ONE (10:16)
[2020-01-14 11:02] LABS: ACETAMINOPHEN <2.0 ug/mL
[2020-01-14 11:10] LABS: BLOOD UREA NITROGEN,BUN 9 mg/dL (7.0-18.0); CARBON DIOXIDE,CO2 21.6 mmol/L (21.0-32.0); CHLORIDE,CL 100 mmol/L (98-107); GLUCOSE RANDOM 200 mg/dL (74-106); POTASSIUM,K 2.7 mmol/L (3.5-5.1); SODIUM,NA 137 mmol/L (136-148)
[2020-01-14] MEDS ORDERED: Potassium Chloride Riders 40 MEQ in Premix Bag 1 BAG IV ONE (11:18)
[2020-01-14] MEDS ORDERED: Potassium Chloride 20 MEQ Tab.ER PO ONE (11:18)
[2020-01-14] MEDS ORDERED: Sodium Chloride 0.9% 1,000 ML IV SCH (12:00)
== END 2020-01-14 14:27 ==
LOC: MW.ED 09:45
DX: T43.212A Poisoning by selective serotonin and norepinephrine reuptake inhibitors, intentional self-harm, initial encounter (principal); F31.9 Bipolar disorder, unspecified; F41.9 Anxiety disorder, unspecified; Z79.899 Other long term (current) drug therapy; Z88.5 Allergy status to narcotic agent
CPT/HCPCS: 36415; 80053; 80305; 80307; 81001; 83735; 84443; 85025; 93005; 96365; 96366; 96368; 99285; A9270; J3480; J7030; J7060; 99283; 99291

== ENCOUNTER 2020-12-05 23:22 | Emergency (ER) | payer OTHER ==
[2020-12-06] MEDS: LORazepam 2 MG/ML SDV IM ONE (00:22)
[2020-12-06] MEDS: Nicotine 21 MG/24 Hr Patch TRDERM ONE (00:23)
--- NOTE | 2020-12-06 00:56 | EDM.PDOC ---
ED HPI GENERAL MEDICAL PROBLEM - General Chief Complaint: Behavioral/Psych Stated Complaint: MENTAL HEALTH Time Seen by Provider: 12/05/20 23:44 - History of Present Illness INITIAL COMMENTS - FREE TEXT/NARRATIVE: HISTORY AND PHYSICAL: History of present illness: This is a 40-year-old gentleman who has a history significant for bipolar affective disorder as well as PTSD who presents ER today secondary to feeling anxious and withdrawn from Seroquel. Patient has any recent fevers, shakes, chills, nausea, vomiting, diarrhea, dysuria, frequency, urgency, chest pain, shortness of breath. Patient denies any cough cold or runny nose. Patient reports that earlier today he became upset and is apartment and started destroying it with a bat and punching the door. Patient was concerned that the police were under, and so he left the department and went to his brother's house. Patient currently is concerned about having to go to shelter. Patient denies any suicidal or homicidal ideations. Patient reports that he has a lot o f rage inside himself right now but he is able to control it and has no intention of harming himself or others. Patient is requesting assistance with getting medication to help him relax a little bit. Review of systems: As per history of present illness and below otherwise all systems reviewed and negative. Past medical history: As per history of present illness and as reviewed below otherwise noncontributory. Surgical history: As per history of present illness and as reviewed below otherwise noncontributory. Social history: No reported history of drug or alcohol abuse. Family history: As per history of present illness and as reviewed below otherwise noncontributory. Physical exam: This patient was seen and evaluated during the 2019 SARS-CoV-2 novel coronavirus pandemic period. Community viral transmission is ongoing at time of this encounter and the emergency department is operating under pandemic response procedures. Constitutional: Patient is oriented to person, place, and time. Appears well- developed and well-nourished. No distress. HEENT: Moist mucous membranes Head: Normocephalic and atraumatic Eyes: Right eye exhibits no discharge. Left eye exhibits no discharge. No scleral icterus Neck: Normal range of motion. No tracheal deviation present. Cardiovascular: Normal rate and regular rhythm. Pulmonary: Effort normal, no respiratory distress. Abdominal: No distention Musculoskeletal: Normal range of motion Neurologic: Alert and oriented to person, place and time. Skin: Lamy, warm and dry. Psychiatric: Normal mood and affect. Behavior is normal. Judgment and thought content normal. Negative SI/HI. No auditory visualizations. Nursing note and vital signs have been reviewed Therapeutics: Ativan 1 mg IM Assessment and plan: This is a 40-year-old gentleman who presents ER today with anxiety and sinus symptoms that he is concerned about withdrawal from Seroquel. Patient was given 1 mg IM Ativan and is currently resting comfortably. At this time, patient is not homicidal or suicidal and nor has he been so. Patient does not present a danger to himself or others at this time. Patient will be discharged to home and will assist with arranging outpatient follow-up for him. Reassessment at the time of disposition demonstrates that the patient is in no acute distress. The patient has remained stable throughout the entire ED visit and is without objective evidence for acute process requiring urgent intervention or hospitalization. The patient is stable for discharge, counseling is provided as documented above, discussed symptomatic treatment and specific conditions for return. I have spoken with the patient/caregiver and discussed todays findings, in addition to providing specific details for the plan of care. Questions are answered and there is agreement with the plan. Definitive disposition and diagnosis as appropriate pending reevaluation and review of above. - Related Data Allergies Allergy/AdvReac Type Severity Reaction Status Date / Time morphine Allergy Itching Verified 12/05/20 23:38 Home Meds: Home Meds . [No Known Home Meds] 12/05/20 [History] Past Medical History HEENT History: Reports: None Cardiovascular History: Reports: None Respiratory History: Reports: None Gastrointestinal History: Reports: None Genitourinary History: Reports: None Musculoskeletal History: Reports: None Neurological History: Reports: None Psychiatric History: Reports: Addiction, Anxiety, Bipolar, PTSD, Suicide Attempt Endocrine/Metabolic History: Reports: None Hematologic History: Reports: None Immunologic History: Reports: None Oncologic (Cancer) History: Reports: None Dermatologic History: Reports: None - Infectious Disease History Infectious Disease History: Reports: Chicken Pox - Past Surgical History Head Surgeries/Procedures: Reports: None Social & Family History - Family History Family Medical History: No Pertinent Family History - Caffeine Use Caffeine Use: Reports: Coffee, Energy Drinks, Soda, Tea ED ROS GENERAL - Review of Systems Review Of Systems: See Below ED EXAM, GENERAL - Physical Exam Exam: See Below Course - Vital Signs Last Recorded V/S: Last Vital Signs Temp 98.0 F 12/05/20 23:39 Pulse 92 12/05/20 23:39 Resp 16 12/05/20 23:39 BP 166/88 H 12/05/20 23:39 Pulse Ox 99 12/05/20 23:39 - Orders/Labs/Meds Meds: Medications Discontinued Medications Generic Name Dose Route Start Last Admin Trade Name Zane PRN Reason Stop Dose Admin Lorazepam 1 mg 12/06/20 00:15 12/06/20 00:22 Lorazepam 2 Mg/Ml Sdv IM 12/06/20 00:16 1 mg ONETIME ONE Administration Nicotine 21 mg 12/06/20 00:22 12/06/20 00:23 Nicotine 21 Mg/24 Hr Patch TRDERM 12/06/20 00:23 21 mg ONETIME ONE Administration Departure - Departure Time of Disposition: 00:54 Disposition: Home, Self-Care 01 Condition: Good Clinical Impression: Anxiety - Discharge Information Referrals: PCP,None [Primary Care Provider] - Forms: ED Department Discharge Additional Instructions: Your seen and evaluated in ER today secondary to feeling anxious and feel like you are withdrawing from your Seroquel. You have been given a dose of Ativan here in the ED to assist you with relaxing. At this time, we will be able to safely discharged from the ER and have a follow-up as an outpatient with [facility]. The following information is given to patients seen in the emergency department who are being discharged to home. This information is to outline your options for follow-up care. We provide all patients seen in our emergency department with a follow-up referral. The need for follow-up, as well as the timing and circumstances, are variable depending upon the specifics of your emergency department visit. If you don't have a primary care physician on staff, we will provide you with a referral. We always advise you to contact your personal physician following an emergency department visit to inform them of the circumstance of the visit and for follow-up with them and/or the need for any referrals to a consulting specialist. The emergency department will also refer you to a specialist when appropriate. This referral assures that you have the opportunity for follow-up care with a specialist. All of these measure are taken in an effort to provide you with optimal care, which includes your follow-up. Under all circumstances we always encourage you to contact your private physician who remains a resource for coordinating your care. When calling for fo llow-up care, please make the office aware that this follow-up is from your recent emergency room visit. If for any reason you are refused follow-up, please contact the [facility] Emergency Department at and asked to speak to the emergency department charge nurse. [facility] - Primary [facility] [address] [place] [id number] [facility] [address] [place] [id number] Sepsis Event Note (ED) - Evaluation Sepsis Screening Result: No Definite Risk - Focused Exam Vital Signs: Vital Signs Temp Pulse Resp BP Pulse Ox 12/05/20 23:39 98.0 F 92 16 166/88 H 99
== END 2020-12-06 01:52 | disposition home or self-care (01) ==
LOC: MW.ED 23:22
DX: F41.9 Anxiety disorder, unspecified (principal); Z88.5 Allergy status to narcotic agent
CPT/HCPCS: 96372; 99283; A9270-GY; J2060

== ENCOUNTER 2020-12-06 10:43 | Emergency (ER) | payer OTHER ==
--- NOTE | 2020-12-06 10:54 | EDM.PDOCBH ---
ED HPI GENERAL MEDICAL PROBLEM - General Stated Complaint: MEDICAL CLEARANCE Time Seen by Provider: 12/06/20 10:45 Source of Information: Reports: Patient History Limitations: Reports: No Limitations - History of Present Illness INITIAL COMMENTS - FREE TEXT/NARRATIVE: HISTORY AND PHYSICAL: History of present illness: Patient is a 40-year-old male who presents to the emergency room with law enforcement for medical clearance. Patient has a past medical history of anxiety, bipolar, PTSD and suicidal ideation. He was seen in the emergency room yesterday with law enforcement as he had an outburst of anger and destroyed his apartment. He attributed this to not taking his Seroquel. Patient was in custody of law enforcement when he made the statement of wanting to kill himself and "go home and hang myself with a rope". Law enforcement put an emergency committal on him and plan on sending him to a facility for emergency psychiatric evaluation. Patient admits he did make comments about wanting to harm himself although he does not feel he needs an evaluation at this time. Patient denies any fever, chills, headache, change in vision, syncope or near syncope. Denies any chest pain, back pain, shortness of breath or cough. Denies any abdominal pain, nausea, vomiting, diarrhea, constipation or dysuria. Has not noted any blood in urine or stool. Patient has been eating and drinking appropriately. Patient previously had been on Seroquel, states he stopped taking this 3 to 4 days ago does not want these medications in the future. Review of systems: As per history of present illness and below otherwise all systems reviewed and negative. Past medical history: As per history of present illness and as reviewed below otherwise noncontributory. Surgical history: As per history of present illness and as reviewed below otherwise noncontributory. Social history: See social history for further information Family history: As per history of present illness and as reviewed below otherwise noncontributory. Physical exam: General: Well developed and well nourished 40 year old male. Alert and orientated x 3. Nontoxic in appearance and in no acute distress. Vital signs are stable and have been reviewed by me. Nursing notes were reviewed. Accompanied by law enforcement. HEENT: Atraumatic, normocephalic, pupils equal and reactive bilaterally, negative for conjunctival pallor or scleral icterus, mucous membranes moist, trachea midline. No drooling or trismus noted. No meningeal signs. No hot potato voice noted. Lungs: Clear to auscultation bilaterally. No wheezes, rales, or rhonchi. Chest nontender. Normal work of breathing, no accessory muscles used. Heart: S1S2, regular rate and rhythm without overt murmur, gallops, or rubs. No JVD. No peripheral edema Abdomen: Soft, nondistended, nontender. Normoactive bowel sounds. Negative for masses or costovertebral tenderness. Skin: Healing burn noted to left forearm. Intact, warm, dry. No lesions or rashes noted. Hematologic: No petechiae or purpra. Mucosa appropriate color and normal nail bed color and refill. Extremities: Atraumatic, moves all extremities per self without difficulty or deficits, negative for cords or calf pain. Neurovascular unremarkable. Neuro: Awake, alert, oriented. Cranial nerves II through XII unremarkable. Cerebellum unremarkable. Motor and sensory unremarkable throughout. Exam nonfocal. Psychiatric: Mood and affect are appropriate. Normal thought process. Answering questions appropriately. Notes: *This patient was seen and evaluated during the 2019 SARS-CoV-2 novel coronavirus pandemic period. Community viral transmission is ongoing at time of this encounter and the emergency department is operating under pandemic response procedures. Although patient is denying any current thoughts of self-harm he is agreeable with lab work required for a mental health hold. Law enforcement is at bedside. He is requesting a meal tray. Dr Vale, psychiatrist at [facility] in [place], is agreeable to excepting this patient. Patient will be going via police as he is in their custody and under their emergency hold. I have talked with the patient/law enforcement about today's findings, in addition to providing specific details for plan of care. Reassessment at the time of disposition demonstrates that the patient is in no acute distress. The patient is stable for discharge with law enforcement, counseling was provided and we discussed in great detail signs and symptoms that would prompt them to return to the Emergency Department. Diagnostics: CBC, CMP, UA, DRGU, Acetaminophen, Salicylate, ETOH Therapeutics: Meal Tray Prescription: None Impression: Suicidal ideation with plan Encounter for medical screening exam Plan: Please take patiento [facility]. Dr Vargas, psychiatrist, has agreed to see the patient for further care and management. Definitive disposition and diagnosis as appropriate pending reevaluation and review of above. - Related Data Allergies Allergy/AdvReac Type Severity Reaction Status Date / Time morphine Allergy Itching Verified 12/06/20 11:03 Home Meds: Home Meds . [No Known Home Meds] 12/05/20 [History] Past Medical History HEENT History: Reports: None Cardiovascular History: Reports: None Respiratory History: Reports: None Gastrointestinal History: Reports: None Genitourinary History: Reports: None Musculoskeletal History: Reports: None Neurological History: Reports: None Psychiatric History: Reports: Addiction, Anxiety, Bipolar, PTSD, Suicide Attempt Endocrine/Metabolic History: Reports: None Hematologic History: Reports: None Immunologic History: Reports: None Oncologic (Cancer) History: Reports: None Dermatologic History: Reports: None - Infectious Disease History Infectious Disease History: Reports: Chicken Pox - Past Surgical History Head Surgeries/Procedures: Reports: None Social & Family History - Family History Family Medical History: No Pertinent Family History - Caffeine Use Caffeine Use: Reports: Coffee, Energy Drinks, Soda, Tea ED ROS GENERAL - Review of Systems Review Of Systems: Comprehensive ROS is negative, except as noted in HPI. ED EXAM, BEHAVIORAL HEALTH - Physical Exam Exam: See Below (See dictation) COURSE, BEHAVIORAL HEALTH COMP - Course Vital Signs: Last Vital Signs Temp 98.6 F 12/06/20 11:04 Pulse 76 12/06/20 11:04 Resp 15 12/06/20 11:04 BP 116/77 12/06/20 11:04 Pulse Ox 98 12/06/20 11:04 Orders, Labs, Meds: Active Orders 24 hr Category Date Time Status CORONAVIRUS COVID-19 ANTOINE [MOLEC] Stat Lab 12/06/20 10:59 Ordered Laboratory Tests 12/06/20 12/06/20 12/06/20 Range/Units 11:14 11:14 11:39 WBC 8.67 (4.0-11.0) K/uL RBC 5.23 (4.50-5.90) M/uL Hgb 16.0 (13.0-17.0) g/dL Hct 46.6 (38.0-50.0) % MCV 89.1 (80.0-98.0) fL MCH 30.6 (27.0-32.0) pg MCHC 34.3 (31.0-37.0) g/dL RDW Std Deviation 46.0 (28.0-62.0) fl RDW Coeff of Sonido 14 (11.0-15.0) % Plt Count 308 (150-400) K/uL MPV 10.10 (7.40-12.00) fL Neut % (Auto) 62.6 (48.0-80.0) % Lymph % (Auto) 23.6 (16.0-40.0) % [place] % (Auto) 10.6 (0.0-15.0) % Eos % (Auto) 2.7 (0.0-7.0) % Baso % (Auto) 0.5 (0.0-1.5) % Neut # (Auto) 5.4 (1.4-5.7) K/uL Lymph # (Auto) 2.1 (0.6-2.4) K/uL [place] # (Auto) 0.9 H (0.0-0.8) K/uL Eos # (Auto) 0.2 (0.0-0.7) K/uL Baso # (Auto) 0.0 (0.0-0.1) K/uL Nucleated RBC % 0.0 /100WBC Nucleated RBCs # 0 K/uL Sodium 139 (136-148) mmol/L Potassium 3.8 (3.5-5.1) mmol/L Chloride 103 (98-107) mmol/L Carbon Dioxide 25.8 (21.0-32.0) mmol/L BUN 11 (7.0-18.0) mg/dL Creatinine 1.2 (0.8-1.3) mg/dL Est Cr Clr Drug Dosing 82.65 mL/min Estimated GFR (MDRD) > 60.0 ml/min Glucose 94 (74-106) mg/dL Calcium 9.4 (8.5-10.1) mg/dL Total Bilirubin 1.1 H (0.2-1.0) mg/dL AST 58 H (15-37) IU/L ALT 47 (14-63) IU/L Alkaline Phosphatase 89 (46-116) U/L Total Protein 7.9 (6.4-8.2) g/dL Albumin 4.4 (3.4-5.0) g/dL Globulin 3.5 (2.6-4.0) g/dL Albumin/Globulin Ratio 1.3 (0.9-1.6) Urine Color YELLOW Urine Appearance CLEAR Urine pH 5.5 (5.0-8.0) Ur Specific [place] >= 1.030 (1.001-1.035) Urine Protein NEGATIVE (NEGATIVE) mg/dL Urine Glucose (UA) NEGATIVE (NEGATIVE) mg/dL Urine Ketones NEGATIVE (NEGATIVE) mg/dL Urine Occult Blood NEGATIVE (NEGATIVE) Urine Nitrite NEGATIVE (NEGATIVE) Urine Bilirubin NEGATIVE (NEGATIVE) Urine Urobilinogen 0.2 (<2.0) EU/dL Ur Leukocyte Esterase NEGATIVE (NEGATIVE) Salicylates 1.4 (0-20) mg/dL Urine Opiates Screen (NEGATIVE) Ur Oxycodone Screen (NEGATIVE) Urine Methadone Screen (NEGATIVE) Acetaminophen <2.0 ug/mL Ur Barbiturates Screen (NEGATIVE) Ur Phencyclidine Scrn (NEGATIVE) Ur Amphetamine Screen (NEGATIVE) U Methamphetamines Scrn (NEGATIVE) U Benzodiazepines Scrn (NEGATIVE) U Cocaine Metab Screen (NEGATIVE) U Marijuana (THC) Screen (NEGATIVE) Ethyl Alcohol 3 mg/dL 12/06/20 Range/Units 11:39 WBC (4.0-11.0) K/uL RBC (4.50-5.90) M/uL Hgb (13.0-17.0) g/dL Hct (38.0-50.0) % MCV (80.0-98.0) fL MCH (27.0-32.0) pg MCHC (31.0-37.0) g/dL RDW Std Deviation (28.0-62.0) fl RDW Coeff of Sonido (11.0-15.0) % Plt Count (150-400) K/uL MPV (7.40-12.00) fL Neut % (Auto) (48.0-80.0) % Lymph % (Auto) (16.0-40.0) % [place] % (Auto) (0.0-15.0) % Eos % (Auto) (0.0-7.0) % Baso % (Auto) (0.0-1.5) % Neut # (Auto) (1.4-5.7) K/uL Lymph # (Auto) (0.6-2.4) K/uL [place] # (Auto) (0.0-0.8) K/uL Eos # (Auto) (0.0-0.7) K/uL Baso # (Auto) (0.0-0.1) K/uL Nucleated RBC % /100WBC Nucleated RBCs # K/uL Sodium (136-148) mmol/L Potassium (3.5-5.1) mmol/L Chloride (98-107) mmol/L Carbon Dioxide (21.0-32.0) mmol/L BUN (7.0-18.0) mg/dL Creatinine (0.8-1.3) mg/dL Est Cr Clr Drug Dosing mL/min Estimated GFR (MDRD) ml/min Glucose (74-106) mg/dL Calcium (8.5-10.1) mg/dL Total Bilirubin (0.2-1.0) mg/dL AST (15-37) IU/L ALT (14-63) IU/L Alkaline Phosphatase (46-116) U/L Total Protein (6.4-8.2) g/dL Albumin (3.4-5.0) g/dL Globulin (2.6-4.0) g/dL Albumin/Globulin Ratio (0.9-1.6) Urine Color Urine Appearance Urine pH (5.0-8.0) Ur Specific [place] (1.001-1.035) Urine Protein (NEGATIVE) mg/dL Urine Glucose (UA) (NEGATIVE) mg/dL Urine Ketones (NEGATIVE) mg/dL Urine Occult Blood (NEGATIVE) Urine Nitrite (NEGATIVE) Urine Bilirubin (NEGATIVE) Urine Urobilinogen (<2.0) EU/dL Ur Leukocyte Esterase (NEGATIVE) Salicylates (0-20) mg/dL Urine Opiates Screen NEGATIVE (NEGATIVE) Ur Oxycodone Screen NEGATIVE (NEGATIVE) Urine Methadone Screen NEGATIVE (NEGATIVE) Acetaminophen ug/mL Ur Barbiturates Screen NEGATIVE (NEGATIVE) Ur Phencyclidine Scrn NEGATIVE (NEGATIVE) Ur Amphetamine Screen NEGATIVE (NEGATIVE) U Methamphetamines Scrn NEGATIVE (NEGATIVE) U Benzodiazepines Scrn POSITIVE (NEGATIVE) U Cocaine Metab Screen NEGATIVE (NEGATIVE) U Marijuana (THC) Screen POSITIVE (NEGATIVE) Ethyl Alcohol mg/dL Departure - Departure Time of Disposition: 12:11 Disposition: DC/Tfer to [facility] 02 Clinical Impression: Encounter for medical screening examination, Suicidal ideation - Discharge Information Referrals: Latrell Reddy, GROCERY CASHIER [Primary Care Provider] - Sepsis Event Note (ED) - Focused Exam Vital Signs: Vital Signs Temp Pulse Resp BP Pulse Ox 12/06/20 11:04 98.6 F 76 15 116/77 98 - My Orders Last 24 Hours: My Active Orders 12/06/20 10:59 CORONAVIRUS COVID-19 ANTOINE [MOLEC] Stat - Assessment/Plan Last 24 Hours: My Active Orders 12/06/20 10:59 CORONAVIRUS COVID-19 ANTOINE [MOLEC] Stat
[2020-12-06 11:44] LABS: ACETAMINOPHEN <2.0 ug/mL; BLOOD UREA NITROGEN,BUN 11 mg/dL (7.0-18.0); CARBON DIOXIDE,CO2 25.8 mmol/L (21.0-32.0); CHLORIDE,CL 103 mmol/L (98-107); GLUCOSE RANDOM 94 mg/dL (74-106); POTASSIUM,K 3.8 mmol/L (3.5-5.1); SODIUM,NA 139 mmol/L (136-148)
== END 2020-12-06 12:12 ==
LOC: MW.ED 10:43
DX: R45.851 Suicidal ideations (principal); Z88.5 Allergy status to narcotic agent
CPT/HCPCS: 36415; 80053; 80143; 80179; 80305-QW; 80307; 81003; 85025; 99284; 99285

== ENCOUNTER 2020-12-25 19:25 | Emergency (ER) | payer OTHER ==
--- NOTE | 2020-12-25 20:06 | EDM.PDOC ---
<Jamie Sargent - Last Filed: 12/26/20 03:22> ED HPI GENERAL MEDICAL PROBLEM - General Chief Complaint: Behavioral/Psych Stated Complaint: MED CLEARANCE Time Seen by Provider: 12/25/20 19:29 - History of Present Illness INITIAL COMMENTS - FREE TEXT/NARRATIVE: 11:55 PM: Patient's Covid test is positive. I have discussed with [facility] and they are not able accept patient who is Covid positive to the mental health unit. 11:45 PM: Discussed with [facility] no availability for Covid positive mental health patients. They are at capacity 11:50 PM: Discussed with [facility]: No availability for Covid positive mental health patients. 1155: Discussed with [facility]: No availability for Covid positive mental health patients. 1158: Discussed with [facility], they will call me back and let me know of any availability. 12 AM: Discussed with [facility]: No adult psych beds available at this time. 1203: Discussed with [facility]: No adult behavioral health beds available. 1 AM: [facility] will be discharged to [facility] under the custody of the enforcement officer and will be evaluated at 8 AM [facility]. - Related Data Allergies Allergy/AdvReac Type Severity Reaction Status Date / Time morphine Allergy Itching Verified 12/25/20 19:58 Home Meds: Home Meds . [No Known Home Meds] 12/05/20 [History] Departure - Departure Time of Disposition: 03:22 Disposition: DC/Tfer to Court of Law En 21 Clinical Impression: Encounter for medical screening examination, Suicidal ideation - Discharge Information Instructions: Medical Screening Exam Referrals: PCP,None [Primary Care Provider] - Forms: ED Department Discharge <Gela Dupree - Last Filed: 12/26/20 10:06> ED HPI GENERAL MEDICAL PROBLEM - General Source of Information: Reports: Patient, Police History Limitations: Reports: No Limitations - History of Present Illness INITIAL COMMENTS - FREE TEXT/NARRATIVE: HISTORY AND PHYSICAL: History of present illness: Patient is a 40-year-old male who presents to the ED today in law enforcement custody for medical screening for an involuntary psychiatric hold placed by the safety equipment testing specialist requiring psychiatric evaluation and transfer to a psychiatric unit. Patient states that yesterday he started having suicidal intrusive thoughts. Patient states his plan is to take Seroquel and overdose on it in front of the managers door who is trying to evict him from his apartment so that the exchange floor manager would "have to walk over his dad corpse "and he thought this would be funny. Patient states he did have a prior overdose attempt in 2019 and has been to multiple inpatient psychiatric units. Patient states he is supposed to be on Thorazine but stopped taking his medication 2 weeks ago and is currently "trying to detox "and states that he thinks he would feel better if he was not on any medications at all as the medications "make him crazy ". Patient denies any suicide attempt today and states the intrusive thoughts have improved today "but occur randomly." [facility] and states that he told the nurse so "he could get help". Patient denies fever, chills, chest pain, shortness of breath, or cough. Denies headache, neck stiff ness, change in vision, syncope, or near syncope. Denies nausea, vomiting, abdominal pain, diarrhea, constipation, or dysuria. Has not noted any blood in urine or stool. Patient has been eating and drinking appropriately. Review of systems: As per history of present illness and below otherwise all systems reviewed and negative. Past medical history: As per history of present illness and as reviewed below otherwise noncontributory. Surgical history: As per history of present illness and as reviewed below otherwise noncontributory. Social history: See social history for further information Family history: As per history of present illness and as reviewed below otherwise noncontributory. Physical exam: General: Patient is alert, oriented, and in no acute distress. Patient sitting comfortably on exam table. Vitals stable and reviewed by me. HEENT: Atraumatic, normocephalic, pupils equal and reactive bilaterally, negative for conjunctival pallor or scleral icterus, mucous membranes moist, TMs normal bilaterally, throat clear, neck supple, nontender, trachea midline. No drooling or trismus noted. No meningeal signs. No hot potato voice noted. Lungs: Clear to auscultation, breath sounds equal bilaterally, chest nontender. Heart: S1S2, regular rate and rhythm without overt murmur Abdomen: Soft, nondistended, nontender. Negative for masses or hepatosplenomegaly. Negative for costovertebral tenderness. Pelvis: Stable nontender. Genitourinary: Deferred. Rectal: Deferred. Skin: Intact, warm, dry. No lesions or rashes noted. Extremities: Atraumatic, negative for cords or calf pain. Neurovascular unremarkable. Neuro: Awake, alert, oriented. Cranial nerves II through XII unremarkable. Cerebellum unremarkable. Motor and sensory unremarkable throughout. Exam nonfocal. Notes: [facility] unable to accept COVID positive patient Dr. Sargent has assumed care of patient and will follow remaining disposition for patient Diagnostics: EKG, CBC, CMP, UA, UDS, Salicylate, Acetaminophen, TSH, Mg, COVID Therapeutics: None Prescription: Impression: Medical screening exam Suicidal ideation COVID-19 infection Plan: Definitive disposition and diagnosis as appropriate pending reevaluation and review of above. Past Medical History HEENT History: Reports: None Cardiovascular History: Reports: None Respiratory History: Reports: None Gastrointestinal History: Reports: None Genitourinary History: Reports: None Musculoskeletal History: Reports: None Neurological History: Reports: None Psychiatric History: Reports: Addiction, Anxiety, Bipolar, PTSD, Suicide Attempt Endocrine/Metabolic History: Reports: None Hematologic History: Reports: None Immunologic History: Reports: None Oncologic (Cancer) History: Reports: None Dermatologic History: Reports: None - Infectious Disease History Infectious Disease History: Reports: Chicken Pox - Past Surgical History Head Surgeries/Procedures: Reports: None Social & Family History - Family History Family Medical History: No Pertinent Family History - Caffeine Use Caffeine Use: Reports: Coffee, Energy Drinks, Soda, Tea ED ROS GENERAL - Review of Systems Review Of Systems: Comprehensive ROS is negative, except as noted in HPI. ED EXAM, GENERAL - Physical Exam Exam: See Below (see dictation) Course - Vital Signs Last Recorded V/S: Last Vital Signs Temp 98.2 F 12/25/20 22:17 Pulse 66 12/26/20 01:27 Resp 18 12/26/20 01:27 BP 107/71 12/26/20 01:27 Pulse Ox 95 12/26/20 01:27 - Orders/Labs/Meds Labs: Laboratory Tests 12/25/20 12/25/20 12/25/20 Range/Units 19:59 19:59 20:25 WBC 10.09 (4.0-11.0) K/uL RBC 5.30 (4.50-5.90) M/uL Hgb 16.1 (13.0-17.0) g/dL Hct 46.9 (38.0-50.0) % MCV 88.5 (80.0-98.0) fL MCH 30.4 (27.0-32.0) pg MCHC 34.3 (31.0-37.0) g/dL RDW Std Deviation 43.5 (28.0-62.0) fl RDW Coeff of Sonido 13 (11.0-15.0) % Plt Count 327 (150-400) K/uL MPV 10.00 (7.40-12.00) fL Neut % (Auto) 71.3 (48.0-80.0) % Lymph % (Auto) 20.1 (16.0-40.0) % [place] % (Auto) 6.6 (0.0-15.0) % Eos % (Auto) 1.6 (0.0-7.0) % Baso % (Auto) 0.4 (0.0-1.5) % Neut # (Auto) 7.2 H (1.4-5.7) K/uL Lymph # (Auto) 2.0 (0.6-2.4) K/uL [place] # (Auto) 0.7 (0.0-0.8) K/uL Eos # (Auto) 0.2 (0.0-0.7) K/uL Baso # (Auto) 0.0 (0.0-0.1) K/uL Nucleated RBC % 0.0 /100WBC Nucleated RBCs # 0 K/uL Sodium 141 (136-148) mmol/L Potassium 3.6 (3.5-5.1) mmol/L Chloride 105 (98-107) mmol/L Carbon Dioxide 26.3 (21.0-32.0) mmol/L BUN 14 (7.0-18.0) mg/dL Creatinine 1.3 (0.8-1.3) mg/dL Est Cr Clr Drug Dosing 76.29 mL/min Estimated GFR (MDRD) > 60.0 ml/min Glucose 158 H (74-106) mg/dL Calcium 9.5 (8.5-10.1) mg/dL Magnesium 2.2 (1.8-2.4) mg/dL Total Bilirubin 0.4 (0.2-1.0) mg/dL AST 14 L (15-37) IU/L ALT 30 (14-63) IU/L Alkaline Phosphatase 102 (46-116) U/L Total Protein 7.7 (6.4-8.2) g/dL Albumin 4.1 (3.4-5.0) g/dL Globulin 3.6 (2.6-4.0) g/dL Albumin/Globulin Ratio 1.1 (0.9-1.6) TSH 3rd Generation 1.79 (0.36-3.74) uIU/mL Urine Color Urine Appearance Urine pH (5.0-8.0) Ur Specific [place] (1.001-1.035) Urine Protein (NEGATIVE) mg/dL Urine Glucose (UA) (NEGATIVE) mg/dL Urine Ketones (NEGATIVE) mg/dL Urine Occult Blood (NEGATIVE) Urine Nitrite (NEGATIVE) Urine Bilirubin (NEGATIVE) Urine Urobilinogen (<2.0) EU/dL Ur Leukocyte Esterase (NEGATIVE) Urine RBC (0-2/HPF) Urine WBC (0-5/HPF) Ur Epithelial Cells (NONE-FEW) Urine Bacteria (NEGATIVE) Salicylates 2.2 (0-20) mg/dL Urine Opiates Screen (NEGATIVE) Ur Oxycodone Screen (NEGATIVE) Urine Methadone Screen (NEGATIVE) Acetaminophen <2.0 ug/mL Ur Barbiturates Screen (NEGATIVE) Ur Phencyclidine Scrn (NEGATIVE) Ur Amphetamine Screen (NEGATIVE) U Methamphetamines Scrn (NEGATIVE) U Benzodiazepines Scrn (NEGATIVE) U Cocaine Metab Screen (NEGATIVE) U Marijuana (THC) Screen (NEGATIVE) Ethyl Alcohol < 3.0 mg/dL Influenza Type A RNA NEGATIVE (NEGATIVE) Influenza Type B RNA NEGATIVE (NEGATIVE) SARS-CoV-2 RNA (ANTOINE) POSITIVE H (NEGATIVE) 12/25/20 12/25/20 Range/Units 21:20 21:20 WBC (4.0-11.0) K/uL RBC (4.50-5.90) M/uL Hgb (13.0-17.0) g/dL Hct (38.0-50.0) % MCV (80.0-98.0) fL MCH (27.0-32.0) pg MCHC (31.0-37.0) g/dL RDW Std Deviation (28.0-62.0) fl RDW Coeff of Sonido (11.0-15.0) % Plt Count (150-400) K/uL MPV (7.40-12.00) fL Neut % (Auto) (48.0-80.0) % Lymph % (Auto) (16.0-40.0) % [place] % (Auto) (0.0-15.0) % Eos % (Auto) (0.0-7.0) % Baso % (Auto) (0.0-1.5) % Neut # (Auto) (1.4-5.7) K/uL Lymph # (Auto) (0.6-2.4) K/uL [place] # (Auto) (0.0-0.8) K/uL Eos # (Auto) (0.0-0.7) K/uL Baso # (Auto) (0.0-0.1) K/uL Nucleated RBC % /100WBC Nucleated RBCs # K/uL Sodium (136-148) mmol/L Potassium (3.5-5.1) mmol/L Chloride (98-107) mmol/L Carbon Dioxide (21.0-32.0) mmol/L BUN (7.0-18.0) mg/dL Creatinine (0.8-1.3) mg/dL Est Cr Clr Drug Dosing mL/min Estimated GFR (MDRD) ml/min Glucose (74-106) mg/dL Calcium (8.5-10.1) mg/dL Magnesium (1.8-2.4) mg/dL Total Bilirubin (0.2-1.0) mg/dL AST (15-37) IU/L ALT (14-63) IU/L Alkaline Phosphatase (46-116) U/L Total Protein (6.4-8.2) g/dL Albumin (3.4-5.0) g/dL Globulin (2.6-4.0) g/dL Albumin/Globulin Ratio (0.9-1.6) TSH 3rd Generation (0.36-3.74) uIU/mL Urine Color YELLOW Urine Appearance CLEAR Urine pH 6.0 (5.0-8.0) Ur Specific [place] 1.010 (1.001-1.035) Urine Protein NEGATIVE (NEGATIVE) mg/dL Urine Glucose (UA) NEGATIVE (NEGATIVE) mg/dL Urine Ketones NEGATIVE (NEGATIVE) mg/dL Urine Occult Blood NEGATIVE (NEGATIVE) Urine Nitrite NEGATIVE (NEGATIVE) Urine Bilirubin NEGATIVE (NEGATIVE) Urine Urobilinogen 0.2 (<2.0) EU/dL Ur Leukocyte Esterase NEGATIVE (NEGATIVE) Urine RBC 0-1 (0-2/HPF) Urine WBC 0-1 (0-5/HPF) Ur Epithelial Cells RARE (NONE-FEW) Urine Bacteria RARE (NEGATIVE) Salicylates (0-20) mg/dL Urine Opiates Screen NEGATIVE (NEGATIVE) Ur Oxycodone Screen NEGATIVE (NEGATIVE) Urine Methadone Screen NEGATIVE (NEGATIVE) Acetaminophen ug/mL Ur Barbiturates Screen NEGATIVE (NEGATIVE) Ur Phencyclidine Scrn NEGATIVE (NEGATIVE) Ur Amphetamine Screen NEGATIVE (NEGATIVE) U Methamphetamines Scrn NEGATIVE (NEGATIVE) U Benzodiazepines Scrn NEGATIVE (NEGATIVE) U Cocaine Metab Screen NEGATIVE (NEGATIVE) U Marijuana (THC) Screen POSITIVE (NEGATIVE) Ethyl Alcohol mg/dL Influenza Type A RNA (NEGATIVE) Influenza Type B RNA (NEGATIVE) SARS-CoV-2 RNA (ANTOINE) (NEGATIVE) Sepsis Event Note (ED) - Evaluation Sepsis Screening Result: No Definite Risk - Focused Exam Vital Signs: Vital Signs Temp Pulse Resp BP Pulse Ox 12/26/20 01:27 66 18 107/71 95 12/26/20 00:00 72 17 128/72 98 12/25/20 22:17 98.2 F 78 18 137/76 97
--- NOTE | 2020-12-25 20:20 | PCM.SN.2 ---
- Free Text/Narrative Note: EKG: As interpreted by ER physician: Arie: Nonspecific ST-T wave abnormalities Normal axis No evidence of ST elevation ME Normal sinus rhythm heart rate of 73
[2020-12-25 20:38] LABS: ACETAMINOPHEN <2.0 ug/mL; BLOOD UREA NITROGEN,BUN 14 mg/dL (7.0-18.0); CARBON DIOXIDE,CO2 26.3 mmol/L (21.0-32.0); CHLORIDE,CL 105 mmol/L (98-107); GLUCOSE RANDOM 158 mg/dL (74-106); POTASSIUM,K 3.6 mmol/L (3.5-5.1); SODIUM,NA 141 mmol/L (136-148)
[2020-12-25 23:39] LABS: CORONAVIRUS COVID-19 NAA POSITIVE (NEGATIVE); INFLUENZA A NAA NEGATIVE (NEGATIVE); INFLUENZA B NAA NEGATIVE (NEGATIVE)
== END 2020-12-26 01:28 ==
LOC: MW.ED 19:25
DX: R45.851 Suicidal ideations (principal); U07.1 COVID-19; Z88.5 Allergy status to narcotic agent
CPT/HCPCS: 0240U; 36415; 80053; 80143; 80179; 80305; 80307; 81001; 83735; 84443; 85025; 93005; 99283; 93010

== ENCOUNTER 2021-06-13 14:28 | Emergency (ER) | payer OTHER ==
[2021-06-13] MEDS ORDERED: Ketorolac 30 MG/ML SDV IM ONE (14:45)
--- NOTE | 2021-06-13 14:50 | EDM.PDOC ---
ED HPI GENERAL MEDICAL PROBLEM - General Chief Complaint: Upper Extremity Injury/Pain Stated Complaint: L SHOULDER PAIN Time Seen by Provider: 06/13/21 14:41 Source of Information: Reports: Patient History Limitations: Reports: No Limitations - History of Present Illness INITIAL COMMENTS - FREE TEXT/NARRATIVE: 41-year-old male with history methamphetamine use presents with left shoulder muscular pain intermittent over the past month. He was lifting drywall which aggravated his pain. He has been taking Aleve with no relief. Pain is moderate, localized to the left trapezius muscle, nonradiating, waxes and wanes, exacerbated with shoulder abduction and elevation, alleviated with immobilization. He is right-handed. ROS: A 10-point review of systems, other than pertinent positives and negatives as stated per HPI, is otherwise negative Past medical history: No additional pertinent history Past Surgical history: No additional pertinent history Social history: No additional pertinent history Family history: No additional pertinent history PHYSICAL EXAM General: AOx4, GCS = 15, No distress HEENT: dry mucous membrane Neck: supple, no meningismus, no Kernig or Brudzinski Cardiac: S1S2 RRR Respiratory: CTAB, no crackles or rales, no wheezing Abdomen: Soft, nontender, no rebound or guarding, nondistended, no pulsatile mass. Back: nontender to C/T/L-spine, left trapezius tender and spastic and swollen. Musculoskeletal: NVI distally, no deformity Neuro: No focal deficits, CN 2 - 12 WNL. - Related Data Allergies Allergy/AdvReac Type Severity Reaction Status Date / Time morphine Allergy Itching Verified 12/25/20 19:58 Home Meds: Home Meds Cyclobenzaprine/Tens Unit/Elec [Cyclotens Starter Negro] 10 mg MC TID PRN #15 combo..pkg 06/13/21 [Rx] Ibuprofen 800 mg PO Q6HR #15 tablet 06/13/21 [Rx] Past Medical History HEENT History: Reports: None Cardiovascular History: Reports: None Respiratory History: Reports: None Gastrointestinal History: Reports: None Genitourinary History: Reports: None Musculoskeletal History: Reports: None Neurological History: Reports: None Psychiatric History: Reports: Addiction, Anxiety, Bipolar, PTSD, Suicide Attempt Endocrine/Metabolic History: Reports: None Hematologic History: Reports: None Immunologic History: Reports: None Oncologic (Cancer) History: Reports: None Dermatologic History: Reports: None - Infectious Disease History Infectious Disease History: Reports: Chicken Pox - Past Surgical History Head Surgeries/Procedures: Reports: None Social & Family History - Family History Family Medical History: No Pertinent Family History - Caffeine Use Caffeine Use: Reports: Coffee Review of Systems - Review of Systems Review Of Systems: See Below (see dictation) ED EXAM, GENERAL - Physical Exam Exam: See Below (see dictation) Course - Orders/Labs/Meds Orders: Active Orders 24 hr Category Date Time Status Ketorolac [Toradol] Med 06/13/21 14:45 Once 30 mg IM ONETIME ONE - Re-Assessments/Exams Free Text/Narrative Re-Assessment/Exam: 06/13/21 14:48 After IM Toradol in the ER, the patient improved and is currently stable for discharge. I performed a repeat exam and did not appreciate new abnormal findings. Patient exhibits normal vital signs and has a normal gait on road test. I advised the patient to return to the ER for reevaluation if symptoms worsened, including fever, worsening pain, or any other worrisome symptoms. I instructed the patient to follow up with their PCP within 2-3 days. MEDICAL DECISION MAKING: I reviewed the patients past medical records, lab and radiographic findings. I discussed the case with the patient. My differential diagnosis included: Left trapezius strain. His left shoulder pain is suggestive of musculoskeletal strain. There are no complaints of urinary or fecal incontinence, focal numbness or weakness. The patient has a normal gait in the ER. There is no evidence of fever, IV drug use, recent back surgery, or immunocompromised state. I do not suspect caude equine syndrome or cord compression which would warrant further imaging. Departure - Departure Time of Disposition: 14:48 Disposition: DC/[facility] to [facility] Condition: Good Clinical Impression: Trapezius muscle strain - Discharge Information *PRESCRIPTION DRUG MONITORING PROGRAM REVIEWED*: Not Applicable *COPY OF PRESCRIPTION DRUG MONITORING REPORT IN PATIENT BARBARA: Not Applicable Prescriptions: Cyclobenzaprine/Tens Unit/Elec [Cyclotens Starter Negro] 10 mg MC TID PRN #15 combo..pkg PRN Reason: Muscle Spasm Ibuprofen 800 mg PO Q6HR #15 tablet Instructions: Muscle Strain Referrals: Latrell Reddy NP [Primary Care Provider] - 2 Days Additional Instructions: The need for follow-up, as well as the timing and circumstances, are variable depending upon the specifics of your emergency department visit. If you don't have a primary care physician on staff, we will provide you with a referral. We always advise you to contact your personal physician following an emergency department visit to inform them of the circumstance of the visit and for follow-up with them and/or the need for any referrals to a consulting specialist. The emergency department will also refer you to a specialist when appropriate. This referral assures that you have the opportunity for follow-up care with a specialist. All of these measure are taken in an effort to provide you with optimal care, which includes your follow-up. Under all circumstances we always encourage you to contact your private physician who remains a resource for coordinating your care. When calling for follow-up care, please make the office aware that this follow-up is from your recent emergency room visit. If for any reason you are refused follow-up, please contact the [facility] Emergency Department at and asked to speak to the emergency department charge nurse. If you do not have a primary care doctor, please follow up with the clinics below within 3-5 days. [facility] [address] [place] [address] [id number] [facility] [address] [place] [id number] - My Orders Last 24 Hours: My Active Orders 06/13/21 14:45 Ketorolac [Toradol] 30 mg IM ONETIME ONE - Assessment/Plan Last 24 Hours: My Active Orders 06/13/21 14:45 Ketorolac [Toradol] 30 mg IM ONETIME ONE
== END 2021-06-13 15:33 | disposition home or self-care (01) ==
LOC: MW.ED 14:28
DX: S46.812A Strain of other muscles, fascia and tendons at shoulder and upper arm level, left arm, initial encounter (principal); Z88.5 Allergy status to narcotic agent; X50.0XXA Overexertion from strenuous movement or load, initial encounter
CPT/HCPCS: 96372; 99283; J1885

== ENCOUNTER 2021-06-27 03:09 | Emergency (ER) | payer OTHER ==
[2021-06-27] MEDS ORDERED: Ketorolac 60 MG/2 ML SDV IM ONE (04:08)
[2021-06-27] MEDS ORDERED: Orphenadrine 60 MG/2 ML Inj IM ONE (04:09)
--- NOTE | 2021-06-27 04:13 | EDM.PDOC ---
ED HPI GENERAL MEDICAL PROBLEM - General Chief Complaint: Behavioral/Psych Stated Complaint: MENTAL HEALTH AND LEFT SHOULDER PAIN Time Seen by Provider: 06/27/21 04:09 - History of Present Illness INITIAL COMMENTS - FREE TEXT/NARRATIVE: HISTORY AND PHYSICAL: History of present illness: This is a 41-year-old gentleman with a history significant for psychosis in the past as well as left shoulder pain who presents ER today secondary to pain to his left trapezius which she has had in the past. Patient reports that they have given an injection in the past with significant improvement. Patient also presents ER today with having suicidal ideation without any plans. Patient reports to me that he has no intention of carrying through with the suicidal ideation and that he does not have any plan or intent to do so. Patient reports that he feels that if he is able to get pain relief from his trapezius muscle pain that he would no longer have suicidal ideation. Patient denies any recent fevers, shakes, chills, nausea, vomiting, diarrhea, dysuria, frequency, urgency, chest pain, shortness of breath. Patient reports he does not wish to be transferred for further mental health evaluation as he feels that that is not beneficial for him and has not helped him in the past. Patient reports he is not having active suicidal thoughts/plan at this time is just having transient episodes of suicidal ideation which he believes is secondary to the pain in his left trapezius area. Review of systems: As per history of present illness and below otherwise all systems reviewed and negative. Past medical history: As per history of present illness and as reviewed below otherwise noncontributory. Surgical history: As per history of present illness and as reviewed below otherwise noncontributory. Social history: No reported history of drug abuse. Family history: As per history of present illness and as reviewed below otherwise noncontributory. Physical exam: This patient was seen and evaluated during the 2019 SARS-CoV-2 novel coronavirus pandemic period. Community viral transmission is ongoing at time of this encounter and the emergency department is operating under pandemic response procedures. Constitutional: Patient is oriented to person, place, and time. Appears well- developed and well-nourished. No distress. HEENT: Moist mucous membranes Head: Normocephalic and atraumatic Eyes: Right eye exhibits no discharge. Left eye exhibits no discharge. No scleral icterus Neck: Normal range of motion. No tracheal deviation present. Cardiovascular: Normal rate and regular rhythm. Pulmonary: Effort normal, no respiratory distress. Abdominal: No distention Musculoskeletal: Normal range of motion Neurologic: Alert and oriented to person, place and time. Skin: [place], warm and dry. Psychiatric: Normal mood and affect. Behavior is normal. Judgment and thought content normal. Nursing note and vital signs have been reviewed Patient was tenderness to palpation to specific points over his left trapezius muscle. Patient is having suicidal ideation but has no intention of harming himself. Patient reports that he has fleeting thoughts of suicide suicidality however he has no plan and no actual desire to hurt himself. Assessment and plan: [41-year-old gentleman who presents ER today secondary to pain to his left trapezius and requesting assistance with management of the pain. Patient also has transient episodes of suicidality which she feels is secondary to the pain that he is having and feels that if we can get his pain better controlled is suicidality would go away. Patient reports that although he does have thoughts of suicidality he has no intent of harming himself and he has no plan of harming himself. Patient is amenable to evaluation by [facility] but does not wish to be transferred to [facility]. 5:42 AM: Patient was seen and evaluated by Gela from [facility]. Patient will be discharged from our ED and will be taken directly to [facility] for further assistance with his mental health issues and depression. At this time, I feel that the patient is stable for discharge from the ED with a good mental health plan in conjunction with [facility]. Patient is extremely happy with this plan and feels comfortable with being discharged and going there. As mentioned earlier to me, the patient was extremely adamant about not being wanting to be transferred to [facility] and felt much better staying within town and thought he would get better care and assistance here. Patient reports that he feels much better after the Norflex and the Toradol and feels that that might help him with his mental health as well to. Reassessment at the time of disposition demonstrates that the patient is in no acute distress. The patient has remained stable throughout the entire ED visit and is without objective evidence for acute process requiring urgent intervention or hospitalization. The patient is stable for discharge, counseling is provided as documented above, discussed symptomatic treatment and specific conditions for return. I have spoken with the patient/caregiver and discussed todays findings, in addition to providing specific details for the plan of care. Questions are answered and there is agreement with the plan. Definitive disposition and diagnosis as appropriate pending reevaluation and review of above. Left Shoulder Pain Score (Numeric/FACES): 10 - Related Data Allergies Allergy/AdvReac Type Severity Reaction Status Date / Time morphine Allergy Itching Verified 06/27/21 03:19 Past Medical History - Past Health History Medical/Surgical History: Denies Medical/Surgical History HEENT History: Reports: None Cardiovascular History: Reports: None Respiratory History: Reports: None Gastrointestinal History: Reports: None Genitourinary History: Reports: None Musculoskeletal History: Reports: None Neurological History: Reports: None Psychiatric History: Reports: Addiction, Anxiety, Bipolar, PTSD, Suicide Attempt Endocrine/Metabolic History: Reports: None Hematologic History: Reports: None Immunologic History: Reports: None Oncologic (Cancer) History: Reports: None Dermatologic History: Reports: None - Infectious Disease History Infectious Disease History: Reports: Chicken Pox - Past Surgical History Head Surgeries/Procedures: Reports: None HEENT Surgical History: Reports: None Cardiovascular Surgical History: Reports: None Social & Family History - Family History Family Medical History: No Pertinent Family History - Caffeine Use Caffeine Use: Reports: Coffee - Recreational Drug Use Recreational Drug Use: No ED ROS GENERAL - Review of Systems Review Of Systems: See Below ED EXAM, GENERAL - Physical Exam Exam: See Below #1 Interpretation EKG Interpretation Comments: EKG June 27, 2021 3:41 AM EKG: As interpreted by ER physician: Arie: Nonspecific ST-T wave abnormalities Normal axis No evidence of ST elevation AR Normal sinus rhythm heart rate of 61 Course - Vital Signs Last Recorded V/S: Last Vital Signs Temp 97.4 F 06/27/21 05:30 Pulse 52 L 06/27/21 05:30 Resp 16 06/27/21 05:30 BP 118/67 06/27/21 05:30 Pulse Ox 97 06/27/21 05:30 - Orders/Labs/Meds Labs: Laboratory Tests 06/27/21 06/27/21 06/27/21 Range/Units 03:37 03:37 03:44 WBC 10.40 (4.0-11.0) K/uL RBC 5.32 (4.50-5.90) M/uL Hgb 16.1 (13.0-17.0) g/dL Hct 46.6 (38.0-50.0) % MCV 87.6 (80.0-98.0) fL MCH 30.3 (27.0-32.0) pg MCHC 34.5 (31.0-37.0) g/dL RDW Std Deviation 42.3 (28.0-62.0) fl RDW Coeff of Sonido 13 (11.0-15.0) % Plt Count 278 (150-400) K/uL MPV 9.70 (7.40-12.00) fL Neut % (Auto) 59.9 (48.0-80.0) % Lymph % (Auto) 24.9 (16.0-40.0) % [place] % (Auto) 10.7 (0.0-15.0) % Eos % (Auto) 3.8 (0.0-7.0) % Baso % (Auto) 0.7 (0.0-1.5) % Neut # (Auto) 6.2 H (1.4-5.7) K/uL Lymph # (Auto) 2.6 H (0.6-2.4) K/uL [place] # (Auto) 1.1 H (0.0-0.8) K/uL Eos # (Auto) 0.4 (0.0-0.7) K/uL Baso # (Auto) 0.1 (0.0-0.1) K/uL Nucleated RBC % 0.0 /100WBC Nucleated RBCs # 0 K/uL Sodium 142 (136-148) mmol/L Potassium 4.8 (3.5-5.1) mmol/L Chloride 103 (98-107) mmol/L Carbon Dioxide 29.5 (21.0-32.0) mmol/L BUN 22 H (7.0-18.0) mg/dL Creatinine 1.3 (0.8-1.3) mg/dL Est Cr Clr Drug Dosing 73.08 mL/min Estimated GFR (MDRD) > 60.0 ml/min Glucose 103 (74-106) mg/dL Calcium 9.5 (8.5-10.1) mg/dL Magnesium 2.4 (1.8-2.4) mg/dL Total Bilirubin 0.5 (0.2-1.0) mg/dL AST 32 (15-37) IU/L ALT 33 (14-63) IU/L Alkaline Phosphatase 98 (46-116) U/L Total Protein 7.6 (6.4-8.2) g/dL Albumin 4.3 (3.4-5.0) g/dL Globulin 3.3 (2.6-4.0) g/dL Albumin/Globulin Ratio 1.3 (0.9-1.6) TSH, Ultra Sensitive 0.92 (0.36-3.74) uIU/mL Urine Color Urine Appearance Urine pH (5.0-8.0) Ur Specific [place] (1.001-1.035) Urine Protein (NEGATIVE) mg/dL Urine Glucose (UA) (NEGATIVE) mg/dL Urine Ketones (NEGATIVE) mg/dL Urine Occult Blood (NEGATIVE) Urine Nitrite (NEGATIVE) Urine Bilirubin (NEGATIVE) Urine Urobilinogen (<2.0) EU/dL Ur Leukocyte Esterase (NEGATIVE) Urine RBC (0-2/HPF) Urine WBC (0-5/HPF) Ur Epithelial Cells (NONE-FEW) Urine Bacteria (NEGATIVE) Salicylates 1.9 (0-20) mg/dL Urine Opiates Screen (NEGATIVE) Ur Oxycodone Screen (NEGATIVE) Urine Methadone Screen (NEGATIVE) Acetaminophen <2.0 ug/mL Ur Barbiturates Screen (NEGATIVE) Ur Phencyclidine Scrn (NEGATIVE) Ur Amphetamine Screen (NEGATIVE) U Methamphetamines Scrn (NEGATIVE) U Benzodiazepines Scrn (NEGATIVE) U Cocaine Metab Screen (NEGATIVE) U Marijuana (THC) Screen (NEGATIVE) Ethyl Alcohol < 3.0 mg/dL SARS-CoV-2 RNA (ANTOINE) NEGATIVE (NEGATIVE) 06/27/21 06/27/21 Range/Units 05:00 05:00 WBC (4.0-11.0) K/uL RBC (4.50-5.90) M/uL Hgb (13.0-17.0) g/dL Hct (38.0-50.0) % MCV (80.0-98.0) fL MCH (27.0-32.0) pg MCHC (31.0-37.0) g/dL RDW Std Deviation (28.0-62.0) fl RDW Coeff of Sonido (11.0-15.0) % Plt Count (150-400) K/uL MPV (7.40-12.00) fL Neut % (Auto) (48.0-80.0) % Lymph % (Auto) (16.0-40.0) % [place] % (Auto) (0.0-15.0) % Eos % (Auto) (0.0-7.0) % Baso % (Auto) (0.0-1.5) % Neut # (Auto) (1.4-5.7) K/uL Lymph # (Auto) (0.6-2.4) K/uL [place] # (Auto) (0.0-0.8) K/uL Eos # (Auto) (0.0-0.7) K/uL Baso # (Auto) (0.0-0.1) K/uL Nucleated RBC % /100WBC Nucleated RBCs # K/uL Sodium (136-148) mmol/L Potassium (3.5-5.1) mmol/L Chloride (98-107) mmol/L Carbon Dioxide (21.0-32.0) mmol/L BUN (7.0-18.0) mg/dL Creatinine (0.8-1.3) mg/dL Est Cr Clr Drug Dosing mL/min Estimated GFR (MDRD) ml/min Glucose (74-106) mg/dL Calcium (8.5-10.1) mg/dL Magnesium (1.8-2.4) mg/dL Total Bilirubin (0.2-1.0) mg/dL AST (15-37) IU/L ALT (14-63) IU/L Alkaline Phosphatase (46-116) U/L Total Protein (6.4-8.2) g/dL Albumin (3.4-5.0) g/dL Globulin (2.6-4.0) g/dL Albumin/Globulin Ratio (0.9-1.6) TSH, Ultra Sensitive (0.36-3.74) uIU/mL Urine Color YELLOW Urine Appearance CLEAR Urine pH 6.0 (5.0-8.0) Ur Specific [place] 1.025 (1.001-1.035) Urine Protein NEGATIVE (NEGATIVE) mg/dL Urine Glucose (UA) NEGATIVE (NEGATIVE) mg/dL Urine Ketones NEGATIVE (NEGATIVE) mg/dL Urine Occult Blood NEGATIVE (NEGATIVE) Urine Nitrite NEGATIVE (NEGATIVE) Urine Bilirubin NEGATIVE (NEGATIVE) Urine Urobilinogen 0.2 (<2.0) EU/dL Ur Leukocyte Esterase NEGATIVE (NEGATIVE) Urine RBC 0-1 (0-2/HPF) Urine WBC NONE SEEN (0-5/HPF) Ur Epithelial Cells NOT SEEN (NONE-FEW) Urine Bacteria RARE (NEGATIVE) Salicylates (0-20) mg/dL Urine Opiates Screen NEGATIVE (NEGATIVE) Ur Oxycodone Screen NEGATIVE (NEGATIVE) Urine Methadone Screen NEGATIVE (NEGATIVE) Acetaminophen ug/mL Ur Barbiturates Screen NEGATIVE (NEGATIVE) Ur Phencyclidine Scrn NEGATIVE (NEGATIVE) Ur Amphetamine Screen NEGATIVE (NEGATIVE) U Methamphetamines Scrn NEGATIVE (NEGATIVE) U Benzodiazepines Scrn NEGATIVE (NEGATIVE) U Cocaine Metab Screen NEGATIVE (NEGATIVE) U Marijuana (THC) Screen NEGATIVE (NEGATIVE) Ethyl Alcohol mg/dL SARS-CoV-2 RNA (ANTOINE) (NEGATIVE) Meds: Medications Discontinued Medications Generic Name Dose Route Start Last Admin Trade Name Zane PRN Reason Stop Dose Admin Ketorolac Tromethamine 60 mg 06/27/21 04:08 06/27/21 04:16 Ketorolac 60 Mg/2 Ml Sdv IM 06/27/21 04:09 60 mg ONETIME ONE Administration Orphenadrine Citrate 60 mg 06/27/21 04:09 06/27/21 04:17 Orphenadrine 60 Mg/2 Ml Inj IM 06/27/21 04:10 60 mg ONETIME ONE Administration Departure - Departure Time of Disposition: 05:43 Disposition: Home, Self-Care 01 Condition: Good Clinical Impression: Depressive disorder, Trapezius muscle strain - Discharge Information Instructions: Muscle Strain, [id number], Major Depressive Disorder, Adult Referrals: PCP,None [Primary Care Provider] - Forms: ED Department Discharge Additional Instructions: You were seen and evaluated in the ER today secondary to strain and pain of your trapezius muscle as well as depression. You were given a dose of Toradol and Norflex which appears to have significantly helped your pain. You will be sent home with a prescription for Flexeril and ibuprofen help you with your pain in your trapezius muscle. We have also spoken to Gela from [facility] and she will assist you with your depression. From here she will take you to [facility] to get mental health assistance. Please return to the ER if any new or concerning events, symptoms or concerns should occur. The following information is given to patients seen in the emergency department who are being discharged to home. This information is to outline your options for follow-up care. We provide all patients seen in our emergency department with a follow-up referral. The need for follow-up, as well as the timing and circumstances, are variable depending upon the specifics of your emergency department visit. If you don't have a primary care physician on staff, we will provide you with a referral. We always advise you to contact your personal physician following an emergency department visit to inform them of the circumstance of the visit and for follow-up with them and/or the need for any referrals to a consulting specialist. The emergency department will also refer you to a specialist when appropriate. This referral assures that you have the opportunity for follow-up care with a specialist. All of these measure are taken in an effort to provide you with optimal care, which includes your follow-up. Under all circumstances we always encourage you to contact your private physician who remains a resource for coordinating your care. When calling for follow-up care, please make the office aware that this follow-up is from your recent emergency room visit. If for any reason you are refused follow-up, please contact the [facility] Emergency Department at and asked to speak to the emergency department charge nurse. [facility] [address] [place] [address] [place] [address] Sepsis Event Note (ED) - Evaluation Sepsis Screening Result: No Definite Risk - Focused Exam Vital Signs: Vital Signs Temp Pulse Resp BP Pulse Ox 06/27/21 05:30 97.4 F 52 L 16 118/67 97 06/27/21 05:00 97.3 F 53 L 16 112/50 L 97 06/27/21 04:30 97.2 F 52 L 16 122/77 99 06/27/21 04:00 97.2 F 61 16 126/77 94 L 06/27/21 03:20 96.2 F L 64 16 142/90 H 97
[2021-06-27 04:20] LABS: ACETAMINOPHEN <2.0 ug/mL; BLOOD UREA NITROGEN,BUN 22 mg/dL (7.0-18.0); CARBON DIOXIDE,CO2 29.5 mmol/L (21.0-32.0); CHLORIDE,CL 103 mmol/L (98-107); GLUCOSE RANDOM 103 mg/dL (74-106); POTASSIUM,K 4.8 mmol/L (3.5-5.1); SODIUM,NA 142 mmol/L (136-148)
== END 2021-06-27 06:57 | disposition home or self-care (01) ==
LOC: MW.ED 03:09
DX: S46.812A Strain of other muscles, fascia and tendons at shoulder and upper arm level, left arm, initial encounter (principal); F32.A Depression, unspecified; Z88.5 Allergy status to narcotic agent; Z20.822 Contact with and (suspected) exposure to COVID-19; X58.XXXA Exposure to other specified factors, initial encounter
CPT/HCPCS: 36415; 80053; 80143; 80179; 80305; 80307; 81001; 83735; 84443; 85025; 87635; 93005; 96372; 99285; J1885; J2360; 93010; 99284; U0002

== ENCOUNTER 2021-07-23 07:15 | Emergency (ER) | payer OTHER ==
[2021-07-23] MEDS ORDERED: Ketorolac 30 MG/ML SDV IM ONE (07:51)
--- NOTE | 2021-07-23 07:51 | EDM.PDOC ---
ED HPI GENERAL MEDICAL PROBLEM - General Chief Complaint: Back Pain or Injury Stated Complaint: LEFT TRAPEZOID MUSCLE IN EXTREME PAIN Time Seen by Provider: 07/23/21 07:16 Source of Information: Reports: Patient History Limitations: Reports: No Limitations - History of Present Illness INITIAL COMMENTS - FREE TEXT/NARRATIVE: Patient is a 41-year-old male who presents today for right shoulder pain. Patient is doing this pain for the past few months has been seen in the ER multiple times for this normal discus pain shot. [facility] is [facility] due to some issues he is having with staffing. He denies any recent injuries to the shoulder is able to move it freely denies any numbness. Is not any medicine for this at home says the pain is made worse and if he touches or palpates the area. Denies any fever chills or other symptoms. Left Shoulder Pain Score (Numeric/FACES): 10 - Related Data Allergies Allergy/AdvReac Type Severity Reaction Status Date / Time No Known Allergies Allergy Verified 07/23/21 07:46 Home Meds: Home Meds . [No Known Home Meds] 07/23/21 [History] Past Medical History - Past Health History Medical/Surgical History: Denies Medical/Surgical History HEENT History: Reports: None Cardiovascular History: Reports: None Respiratory History: Reports: None Gastrointestinal History: Reports: None Genitourinary History: Reports: None Musculoskeletal History: Reports: None Neurological History: Reports: None Psychiatric History: Reports: Addiction, Anxiety, Bipolar, PTSD, Suicide Attempt Endocrine/Metabolic History: Reports: None Hematologic History: Reports: None Immunologic History: Reports: None Oncologic (Cancer) History: Reports: None Dermatologic History: Reports: None - Infectious Disease History Infectious Disease History: Reports: Chicken Pox - Past Surgical History Head Surgeries/Procedures: Reports: None HEENT Surgical History: Reports: None Cardiovascular Surgical History: Reports: None Social & Family History - Family History Family Medical History: No Pertinent Family History - Tobacco Use Tobacco Use Status *Q: Current Every Day Tobacco User Years of Tobacco use: 31 Packs/Tins Daily: 1 - Caffeine Use Caffeine Use: Reports: Coffee - Recreational Drug Use Recreational Drug Use: No ED ROS GENERAL - Review of Systems Review Of Systems: See Below Constitutional: Reports: No Symptoms HEENT: Reports: No Symptoms Respiratory: Reports: No Symptoms Cardiovascular: Reports: No Symptoms Endocrine: Reports: No Symptoms GI/Abdominal: Reports: No Symptoms : Reports: No Symptoms Musculoskeletal: Reports: Shoulder Pain Skin: Reports: No Symptoms Neurological: Reports: No Symptoms Psychiatric: Reports: No Symptoms Hematologic/Lymphatic: Reports: No Symptoms Immunologic: Reports: No Symptoms ED EXAM, GENERAL - Physical Exam Exam: See Below Exam Limited By: No Limitations General Appearance: Alert, WD/WN, No Apparent Distress Eye Exam: Bilateral Eye: EOMI, PERRL Throat/Mouth: Normal Inspection Head: Atraumatic Neck: Normal Inspection, Supple, Non-Tender Respiratory/Chest: No Respiratory Distress, Lungs Clear, Normal Breath Sounds Cardiovascular: Normal Peripheral Pulses GI/Abdominal: Normal Bowel Sounds, Soft, Non-Tender Extremities: Normal Inspection, Normal Range of Motion, Non-Tender Neurological: Alert, Oriented, Normal Cognition, Normal Gait Psychiatric: Normal Affect Course - Vital Signs Last Recorded V/S: Last Vital Signs Temp 96.6 F L 07/23/21 07:25 Pulse 68 07/23/21 07:25 Resp 18 07/23/21 07:25 BP 118/66 07/23/21 07:25 Pulse Ox 95 07/23/21 07:25 Departure - Departure Time of Disposition: 07:50 Disposition: Home, Self-Care 01 Condition: Good Clinical Impression: Trapezius muscle spasm - Discharge Information *PRESCRIPTION DRUG MONITORING PROGRAM REVIEWED*: Not Applicable *COPY OF PRESCRIPTION DRUG MONITORING REPORT IN PATIENT BARBARA: Not Applicable Instructions: Muscle Cramps and Spasms, [id number] Referrals: PCP,None [Primary Care Provider] - Additional Instructions: You were seen today for upper shoulder pain that you have for the past few months on exam the pain seems to be more muscular pain and we recommend you continue to heat the area and massage as needed. We also recommend he follow-up to primary care physician if he continues to give you pain as you may need more than has imaging that we'll get off in the emergency department. If you have any other concerning signs or symptoms please return to the ED. The following information is given to patients seen in the emergency department who are being discharged to home. This information is to outline your options for follow-up care. We provide all patients seen in our emergency department with a follow-up referral. The need for follow-up, as well as the timing and circumstances, are variable depending upon the specifics of your emergency department visit. If you don't have a primary care physician on staff, we will provide you with a referral. We always advise you to contact your personal physician following an emergency department visit to inform them of the circumstance of the visit and for follow-up with them and/or the need for any referrals to a consulting specialist. The emergency department will also refer you to a specialist when appropriate. This referral assures that you have the opportunity for follow-up care with a specialist. All of these measure are taken in an effort to provide you with optimal care, which includes your follow-up. Under all circumstances we always encourage you to contact your private physician who remains a resource for coordinating your care. When calling for follow-up care, please make the office aware that this follow-up is from your recent emergency room visit. If for any reason you are refused follow-up, please contact the [facility] Emergency Department at and asked to speak to the emergency department charge nurse. Please follow up with your primary care physician. If you do not have a primary care physician, see below: [facility] [address] [place] [id number] [facility] [address] [place] [id number] Sepsis Event Note (ED) - Evaluation Sepsis Screening Result: No Definite Risk - Focused Exam Vital Signs: Vital Signs Temp Pulse Resp BP Pulse Ox 07/23/21 07:25 96.6 F L 68 18 118/66 95 - Assessment/Plan Plan: Patient is a 41-year-old male presents today for recurrent shoulder pain. On exam the pain is mostly over his trapezius muscle. Hasn't tenderness to touch. No bruising seen. This seems to be a muscle skeletal pain has been going on for the past few months. We will provide pain control and have patient follow-up with his primary care provider.
== END 2021-07-23 08:23 | disposition home or self-care (01) ==
LOC: MW.ED 07:15
DX: M62.838 Other muscle spasm (principal); Z72.0 Tobacco use
CPT/HCPCS: 96372; 99283; J1885

== ENCOUNTER 2021-08-28 15:01 | Emergency (ER) | payer OTHER ==
--- NOTE | 2021-08-28 15:05 | EDM.PDOC ---
ED HPI GENERAL MEDICAL PROBLEM - General Chief Complaint: Behavioral/Psych Stated Complaint: NOT FEELING TOO GOOD Time Seen by Provider: 08/28/21 15:15 Source of Information: Reports: Patient History Limitations: Reports: No Limitations - History of Present Illness INITIAL COMMENTS - FREE TEXT/NARRATIVE: HISTORY AND PHYSICAL: History of present illness: Patient is a 41-year-old male who presents to the emergency room with complaints of "mental health issues". Patient states he has a history of schizophrenia and does see someone at [facility] and wants to be see someone from there ([facility] associate). Patient states he is hearing voices that tell him to shoot everyone and himself. He proceeds to tell me that "if you send me to [facility], [facility], or [place]... I'll shoot everyone... I want to go to [facility]". Patient states he has been to several inpatient facilities for psychiatric help and "nothing helps". Patient denies any fever, chills, headache, change in vision, syncope or near syncope. Denies any chest pain, back pain, shortness of breath or cough. Denies any abdominal pain, nausea, vomiting, diarrhea, constipation or dysuria. Has not noted any blood in urine or stool. Patient has been eating and drinking appropriately. No recent travel or sick contacts. Review of systems: As per history of present illness and below otherwise all systems reviewed and negative. Past medical history: As per history of present illness and as reviewed below otherwise noncontributory. Surgical history: As per history of present illness and as reviewed below otherwise nonco ntributory. Social history: See social history for further information Family history: As per history of present illness and as reviewed below otherwise noncontributory. Physical exam: General: Well developed and well nourished 41 year old male. Alert and orientated x 3. Nontoxic in appearance and in no acute distress. Vital signs are stable and have been reviewed by me. Nursing notes were reviewed. HEENT: Atraumatic, normocephalic, pupils equal and reactive bilaterally, negative for conjunctival pallor or scleral icterus, mucous membranes moist, TMs normal bilaterally, throat clear, neck supple, nontender, trachea midline. No drooling or trismus noted. No meningeal signs. No hot potato voice noted. Lungs: Clear to auscultation bilaterally. No wheezes, rales, or rhonchi. Chest nontender. Normal work of breathing, no accessory muscles used. Heart: S1S2, regular rate and rhythm without overt murmur, gallops, or rubs. No JVD. No peripheral edema Abdomen: Soft, nondistended, nontender. Skin: Intact, warm, dry. No lesions or rashes noted. Hematologic: No petechiae or purpra. Mucosa appropriate color and normal nail bed color and refill. Extremities: Atraumatic, moves all extremities per self without difficulty or deficits, negative for cords or calf pain. Neurovascular unremarkable. Neuro: Awake, alert, oriented. Cranial nerves II through XII unremarkable. Cerebellum unremarkable. Motor and sensory unremarkable throughout. Exam nonfocal. Psychiatric: Mood and affect are appropriate. Normal thought process. Answering questions appropriately. Please note that the patient was seen and evaluated during the 2019 SARS-CoV-2 novel coronavirus pandemic period. Community viral transmission is ongoing at time of this encounter and the emergency department is operating under pandemic response procedures. Medical Decision Makin: [facility] is here to talk with patient. Patient is not appropriate for outpatient mental health needs. They are recommending patient be placed on a mental health hold and transported to an inpatient facility. I did talk with Dr. Buck at [facility] in [place]. He is agreeable to taking this patient for further care and management. Due to patient's threats while the initial interviewing process we will have him go by the [facility]'s department. Diagnostics: CBC, CMP, Acetaminophen, Salicylate, ETOH, Drug Screen, TSH, UA, COVID Therapeutics: Emergency committal placed Impression: Suicidal and homicidal ideation Definitive disposition and diagnosis as appropriate pending reevaluation and review of above. - Related Data Allergies Allergy/AdvReac Type Severity Reaction Status Date / Time No Known Allergies Allergy Verified 07/23/21 07:46 Home Meds: Home Meds Cyclobenzaprine [Flexeril] 5 mg PO BID PRN 5 Days #10 tab 07/23/21 [Rx] Naproxen 500 mg PO BID PRN 5 Days #10 tablet 07/23/21 [Rx] Past Medical History - Past Health History Medical/Surgical History: Denies Medical/Surgical History HEENT History: Reports: None Cardiovascular History: Reports: None Respiratory History: Reports: None Gastrointestinal History: Reports: None Genitourinary History: Reports: None Musculoskeletal History: Reports: Other (See Below) Other Musculoskeletal History: left shoulder pain due to previous injury Neurological History: Reports: None, Other (See Below) Other Neuro History: Patient reports "TBI" Psychiatric History: Reports: Addiction, Anxiety, Bipolar, PTSD, Suicide Attempt Endocrine/Metabolic History: Reports: None Hematologic History: Reports: None Immunologic History: Reports: None Oncologic (Cancer) History: Reports: None Dermatologic History: Reports: None - Infectious Disease History Infectious Disease History: Reports: Chicken Pox - Past Surgical History Head Surgeries/Procedures: Reports: None HEENT Surgical History: Reports: None Cardiovascular Surgical History: Reports: None Social & Family History - Family History Family Medical History: No Pertinent Family History - Caffeine Use Caffeine Use: Reports: Coffee ED ROS GENERAL - Review of Systems Review Of Systems: Comprehensive ROS is negative, except as noted in HPI. ED EXAM, GENERAL - Physical Exam Exam: See Below (See dictation) Course - Vital Signs Last Recorded V/S: Last Vital Signs Temp 97.6 F 08/28/21 18:28 Pulse 70 08/28/21 18:28 Resp 18 08/28/21 18:28 BP 134/73 08/28/21 18:28 Pulse Ox 96 08/28/21 18:28 - Orders/Labs/Meds Orders: Active Orders 24 hr Category Date Time Status Suicide Precautions [RC] .Per Facility Policy Care 08/28/21 15:33 Active CORONAVIRUS COVID-19 ANTOINE [MOLEC] Stat Lab 08/28/21 15:22 Ordered Labs: Laboratory Tests 08/28/21 08/28/21 08/28/21 Range/Units 15:35 15:35 15:40 WBC 8.25 (4.0-11.0) K/uL RBC 4.89 (4.50-5.90) M/uL Hgb 14.8 (13.0-17.0) g/dL Hct 43.5 (38.0-50.0) % MCV 89.0 (80.0-98.0) fL MCH 30.3 (27.0-32.0) pg MCHC 34.0 (31.0-37.0) g/dL RDW Std Deviation 43.4 (28.0-62.0) fl RDW Coeff of Sonido 13 (11.0-15.0) % Plt Count 254 (150-400) K/uL MPV 10.00 (7.40-12.00) fL Neut % (Auto) 54.0 (48.0-80.0) % Lymph % (Auto) 31.2 (16.0-40.0) % Wood % (Auto) 8.8 (0.0-15.0) % Eos % (Auto) 5.0 (0.0-7.0) % Baso % (Auto) 1.0 (0.0-1.5) % Neut # (Auto) 4.5 (1.4-5.7) K/uL Lymph # (Auto) 2.6 H (0.6-2.4) K/uL Wood # (Auto) 0.7 (0.0-0.8) K/uL Eos # (Auto) 0.4 (0.0-0.7) K/uL Baso # (Auto) 0.1 (0.0-0.1) K/uL Nucleated RBC % 0.0 /100WBC Nucleated RBCs # 0 K/uL Sodium 141 (136-148) mmol/L Potassium 4.2 (3.5-5.1) mmol/L Chloride 103 (98-107) mmol/L Carbon Dioxide 29.4 (21.0-32.0) mmol/L BUN 11 (7.0-18.0) mg/dL Creatinine 0.9 (0.8-1.3) mg/dL Est Cr Clr Drug Dosing 109.10 mL/min Estimated GFR (MDRD) > 60.0 ml/min Glucose 93 (74-106) mg/dL Calcium 9.7 (8.5-10.1) mg/dL Total Bilirubin 0.4 (0.2-1.0) mg/dL AST 20 (15-37) IU/L ALT 29 (14-63) IU/L Alkaline Phosphatase 82 (46-116) U/L Total Protein 7.5 (6.4-8.2) g/dL Albumin 4.3 (3.4-5.0) g/dL Globulin 3.2 (2.6-4.0) g/dL Albumin/Globulin Ratio 1.3 (0.9-1.6) TSH, Ultra Sensitive 1.11 (0.36-3.74) uIU/mL Salicylates 2.8 (0-20) mg/dL Urine Opiates Screen NEGATIVE (NEGATIVE) Ur Oxycodone Screen NEGATIVE (NEGATIVE) Urine Methadone Screen NEGATIVE (NEGATIVE) Acetaminophen <2.0 ug/mL Ur Barbiturates Screen NEGATIVE (NEGATIVE) Ur Phencyclidine Scrn NEGATIVE (NEGATIVE) Ur Amphetamine Screen NEGATIVE (NEGATIVE) U Methamphetamines Scrn NEGATIVE (NEGATIVE) U Benzodiazepines Scrn NEGATIVE (NEGATIVE) U Cocaine Metab Screen NEGATIVE (NEGATIVE) U Marijuana (THC) Screen POSITIVE (NEGATIVE) Ethyl Alcohol < 3.0 mg/dL Departure - Departure Time of Disposition: 18:32 Disposition: Home, Self-Care 01 Clinical Impression: Suicidal ideation - Discharge Information Referrals: Latrell Reddy [facility] [Primary Care Provider] - Forms: ED Department Discharge Sepsis Event Note (ED) - Focused Exam Vital Signs: Vital Signs Temp Pulse Resp BP Pulse Ox 08/28/21 18:28 97.6 F 70 18 134/73 96 08/28/21 17:58 98.0 F 62 18 138/77 97 08/28/21 17:28 97.2 F 60 18 130/76 98 08/28/21 17:00 96.7 F L 60 18 136/81 99 08/28/21 16:30 97.0 F 60 18 128/77 100 08/28/21 16:11 96.8 F L 53 L 15 124/77 96 08/28/21 15:22 97.0 F 55 L 18 128/77 100 08/28/21 15:13 96.5 F L 59 L 18 122/73 98 - My Orders Last 24 Hours: My Active Orders 08/28/21 15:22 CORONAVIRUS COVID-19 ANTOINE [MOLEC] Stat 08/28/21 15:33 Suicide Precautions [RC] .Per Facility Policy - Assessment/Plan Last 24 Hours: My Active Orders 08/28/21 15:22 CORONAVIRUS COVID-19 ANTOINE [MOLEC] Stat 08/28/21 15:33 Suicide Precautions [RC] .Per Facility Policy
[2021-08-28 16:19] LABS: ACETAMINOPHEN <2.0 ug/mL; BLOOD UREA NITROGEN,BUN 11 mg/dL (7.0-18.0); CARBON DIOXIDE,CO2 29.4 mmol/L (21.0-32.0); CHLORIDE,CL 103 mmol/L (98-107); GLUCOSE RANDOM 93 mg/dL (74-106); POTASSIUM,K 4.2 mmol/L (3.5-5.1); SODIUM,NA 141 mmol/L (136-148)
== END 2021-08-28 19:18 ==
LOC: MW.ED 15:01
DX: R45.851 Suicidal ideations (principal); R45.850 Homicidal ideations; Z20.822 Contact with and (suspected) exposure to COVID-19
CPT/HCPCS: 36415; 80053; 80143; 80179; 80305-QW; 80307; 84443; 85025; 99285; U0002

== ENCOUNTER 2022-12-30 16:18 | Emergency (ER) | payer OTHER ==
[2022-12-30] MEDS ORDERED: LORazepam 2 MG/ML SDV IVPUSH ONE (16:23)
[2022-12-30] MEDS ORDERED: Ondansetron 4 MG/2 ML SDV IVPUSH ONE (16:23)
[2022-12-30] MEDS ORDERED: Sodium Chloride 0.9% 1,000 ML IV ONE (16:23)
[2022-12-30 17:43] LABS: ACETAMINOPHEN <2.0 ug/mL; BLOOD UREA NITROGEN,BUN 17 mg/dL (7.0-18.0); CARBON DIOXIDE,CO2 25.6 mmol/L (21.0-32.0); CHLORIDE,CL 105 mmol/L (98-107); GLUCOSE RANDOM 165 mg/dL (74-106); POTASSIUM,K 3.6 mmol/L (3.5-5.1); SODIUM,NA 142 mmol/L (136-148)
[2022-12-30 17:45] LABS: ESTIMATED GFR 86 mL/min (>60)
== END 2022-12-30 19:33 | disposition home or self-care (01) ==
LOC: MW.ED 16:18
DX: F19.10 Other psychoactive substance abuse, uncomplicated (principal)
CPT/HCPCS: 36415; 80053; 80143; 80179; 80305; 80307; 81003; 84484; 85025; 93005; 96361; 96374; 99285; J2405; J7030

== ENCOUNTER 2024-03-05 05:17 | Emergency (ER) | payer OTHER | END 2024-03-05 05:50 | disposition home or self-care (01) | LOC: MW.ED 05:17 | DX: R21 Rash and other nonspecific skin eruption (principal) | CPT/HCPCS: 99283 ==

== ENCOUNTER 2024-03-05 10:28 | Emergency (ER) | payer OTHER | END 2024-03-05 10:57 | disposition home or self-care (01) | LOC: MW.ED 10:28 | DX: R21 Rash and other nonspecific skin eruption (principal); Z75.8 Other problems related to medical facilities and other health care | CPT/HCPCS: 99283 ==